=== PATIENT | male | born 1960 | race Caucasian/White ===

== ENCOUNTER 2020-10-10 11:04 | Outpatient (CLI) | payer BC, SELFPAY ==
--- NOTE | ~2020-10-10 | XR_ITS ---
EXAMINATION: XR knee LT 3V DATE: 10/10/2020 11:44 INDICATION: Left knee pain. TECHNIQUE: 3 views of left knee were obtained. COMPARISON: None. FINDINGS: Bone alignment is normal. No fracture. There is mild tricompartmental osteoarthritis. There is a small knee joint effusion. IMPRESSION: 1. Mild left knee osteoarthritis. 2. Small left knee joint effusion. Reviewed, dictated and finalized at location A.
== END 2020-10-10 11:05 | disposition home or self-care (01) ==
LOC: ANHIMG 11:10
PROVIDERS: PCP Family Medicine; Visit Provider Family Medicine
DX: M17.12 Unilateral primary osteoarthritis, left knee (principal); M25.462 Effusion, left knee
CPT/HCPCS: 73562

== ENCOUNTER 2021-10-13 09:40 | Outpatient (CLI) | payer BC, SELFPAY ==
--- NOTE | ~2021-10-13 | MR_ITS ---
EXAMINATION: MR knee RT wo con DATE: 10/13/2021 10:59 INDICATION: Medial right knee pain. TECHNIQUE: Magnetic resonance imaging (MRI) of the right knee was performed without intravenous contr ast. Sequences included axial PD-weighted FS FSE, coronal PD-weighted FSE and PD-weighted FS FSE, sag ittal PD-weighted FSE, and sagittal T2-weighted FS FSE. COMPARISON: Right knee radiographs 08/13/2021 FINDINGS: Medial compartment: There is a vertical tear involving body of medial meniscus. There is cartilage surface irregularity o f tibial condyle. There is shallow partial-thickness cartilage loss of femoral condyle, worst at the central articular surface. There are tiny osteophytes. Lateral compartment: Lateral meniscus is normal. There is shallow partial-thickness cartilage loss of tibial condyle. Ther e is cartilage surface irregularity of femoral condyle. There are tiny osteophytes. Patellofemoral compartment: There is deep partial thickness cartilage loss of patellar lateral facet and median ridge with mild s ubchondral edema-like marrow signal intensity. There is shallow partial-thickness cartilage loss of p atellar medial facet. There is shallow partial-thickness cartilage loss of trochlea with mild subchon dral edema-like marrow signal intensity at medial trochlea. Osteophytes are noted. Ligaments and tendons: The anterior and posterior cruciate ligaments are normal. There are changes of prior sprains of fibul ar collateral ligament and medial collateral ligament characterized by thickening and increased signa l intensity proximally. There is mild patellar tendinopathy. There is ununited ossification at tibial tubercle. Fluid: There is a small knee joint effusion. There is a small Ward's cyst. IMPRESSION: 1. Moderate chondrosis of patellofemoral compartment and mild chondrosis of medial and lateral compar tments. 2. Tear of medial meniscus. 3. Small knee joint effusion. 4. Small Ward's cyst. Reviewed, dictated and finalized at location A. IMPRESSION: 1. Moderate chondrosis of patellofemoral compartment and mild chondrosis of med ial and lateral compartments. 2. Tear of medial meniscus. 3. Small knee joint effusion. 4. Small Ward's cyst.
== END 2021-10-13 09:41 | disposition home or self-care (01) ==
LOC: CHSIMG 09:42
PROVIDERS: PCP Family Medicine; Visit Provider Nurse Practitioner Family
DX: M25.561 Pain in right knee (principal)
CPT/HCPCS: 73721

== ENCOUNTER 2021-11-25 01:35 | Day surgery (SDC) | payer BC, SELFPAY ==
[2021-11-18 17:55] VITALS: BMI 28.5
--- NOTE | 2021-11-18 18:21 | PC.NURSE ---
Report to the Outpatient Waiting Room, entrance under the green pavilion located off [facility], at 1130 on 11-25-21. OR Time: 1330. - You and your visitor will be asked a series of questions to screen for COVID 19 for your protection. - Only one visitor is allowed at this time. - The patient visitor is requested to leave or wait in car when not with patient. - A mask is required within the hospital. Patients may have clear liquids (water, carbonated beverages, clear teas, apple juice) until 3 hours prior to surgery with a maximum of 20 ounces. 1030 - No food from midnight until time of surgery - Infants may have breast milk until 4 hours before surgery, infant formula 6 hours prior to surgery. - Children will be allowed to drink immediately following surgery. If applicable, please bring a bottle or sippy cup to assist with drinking. Juice, water, soda, and popsicles are readily available. For infants on formula, please bring formula the day of surgery. Pacifiers are allowed. Take the following medications with a SIP of water the morning of surgery: None Medications to discontinue per physician: Excedrin and meloxicam per Dr. Velazco Please no make-up, nail upper sorbian, hairspray, perfume, deodorant, or body powder the day of surgery. No jewelry (including any body piercings) or valuables the day of surgery, leave them at home. Please take a shower or bath the night before, or the morning of, surgery with an antibacterial soap. Hibiclens per Mora's orders Wear comfortable, loose fitting clothing. Children are encouraged to wear pajamas. - Jewelry must be removed prior to entering the operating room. Rings and piercings that are not removed may be cut off. - The hospital will not accept responsibility for valuables. - Please leave all valuables, including medications, at home the day of surgery. If you are going home after surgery, a licensed caterpillar driver must drive you home. - NO public transportation without another adult. - We recommend that an adult stay with you for 24 hours following discharge. - We also recommend that you do not drive, make important decision, drink alcoholic beverages, or take any drugs that were not prescribed by your health care provider for at least 24 hours after your discharge time. For Pediatric surgeries, we recommend two adults accompany the child home (only one inside the building at this time). Follow any additional instructions given to you from your surgeon. If you or anyone in your household have experienced Covid symptoms in the past week, please notify your surgeon or the nurse liaison at the phone number below for possible testing. Telephone instructions given to Loyd Canales and asked if any additional questions and then verbalized understanding. Patient advised to call surgeon office or pre surgery nurse liaison [phone] if any additional questions.
--- NOTE | 2021-11-24 13:47 | P.PNAN_ITS ---
Anes - Initial Pre Proc Eval Procedure: Operation Date: 11/25/21 13:30 Proposed Procedures p Right Knee Arthroscopy, Proceed As Indicated - Mike Velazco MD Date/Time: 11/24/21 13:47 Surgeon: Mike Velazco MD Pre Op Diagnosis: right knee medial meniscus tear Patient Data Age: 61 Gender: M Height: 1.85 m Weight: 97.98 kg Allergies Allergy/AdvReac Type Severity Reaction Status Date / Time No Known Allergies Allergy Verified 11/25/21 12:05 Home Medications Medication Instructions Recorded Confirmed Type acetaminophen-caffeine 500 mg-65 1 tablet PO Q6H PRN headaches 07/16/19 11/25/21 History mg tablet (Excedrin Tension Headache) meloxicam 15 mg tablet 15 mg PO DAILY #30 tabs 10/26/21 11/25/21 Rx chlorhexidine gluconate 4 % 1 applic topical ONCE #237 mL 11/18/21 11/25/21 Rx topical liquid (Hibiclens) Patient hx anesthesia problems: none Family hx anesthesia problems: none Results Review: All pre-operative results and documents have been reviewed as part of the pre- operative evaluation. [facility] Past Medical History Medical History (Updated 11/24/21 @ 13:48 by Sebastián Alvarado MD) BMI 32.0-32.9,adult Body mass index (BMI) of 31.0 to 31.9 in adult Chronic neck pain Degenerative joint disease of knee Dehydration after exertion Left knee pain Left knee pain Male erectile dysfunction, unspecified Medial meniscus tear Mixed hyperlipidemia Palpitation PUD (peptic ulcer disease) Right knee pain Seasonal allergic rhinitis Tobacco use cigars twice weekly Vitamin B12 deficiency anemia Family History Family History Father Patient's father is , Onset Age: 31 Family history of malignant neoplasm of testis Social History Social History Years smoked: 15 Smoking status: Current some day smoker Tobacco type: cigars and smokeless tobacco Second hand tobacco smoke exposure: No Additional smoking assessment comments: smokes cigars 2 week; chews regularly Alcohol intake: current Alcohol use details: socially Substance use: never Substance use type: does not use Living arrangements: with family Spiritual care concerns: No Anes - Eval Final PreProcedure Day of Procedure 11/24/21 13:47 Patient weight: overweight Heart: regular rate and rhythm Lungs: clear to auscultation and normal air movement Airway: Mallampati scale class II Neurological: alert and oriented Last oral intake: >/= 8 hours ASA classification: II Emergent: no Anesthetic plan: proceed Anesthesia type and monitoring: general GIVS Results Review: All pre-operative results and documents have been reviewed as part of the pre- operative evaluation. Informed Consent: The patient's anesthetic plan and its attendant risks and benefits were discussed with the patient/family/POA. Questions were solicited and answers provided to the satisfaction of the patient/family/POA.
[2021-11-25] VITALS (8 sets, daily range): BP systolic 105–133; BP diastolic 68–86; PULSE 49–73; RESP 12–16; TEMP 36.4–37.1; O2SAT 98–99
--- NOTE | 2021-11-25 07:06 | WPDHPUPDATE1 ---
History and Physical Update Update Date/Time: 11/25/21 07:06 History and Physical has been reviewed, including an updated exam of the patient. There are NO changes in the patient's condition. Risks, benefits, and alternatives have been discussed and questions answered. Patient agrees to proceed with procedure.
[2021-11-25] MEDS: ACETAMINOPHEN 500 MG TABLET 1000 MG PO (11:50)
[2021-11-25] MEDS: CELECOXIB 200 MG CAPSULE PO (11:50)
[2021-11-25] MEDS: LACTATED RINGERS 1,000 ML 30 ML IV CONT (12:00)
[2021-11-25] MEDS: ceFAZolin 2 GM/D5W 50 ML 2 GM/50 ML BAG IVPB (12:53)
[2021-11-25] MEDS: BUPIVACAINE HCL 0.5% PF 30 ML VIAL INFILTRATE (13:11)
--- NOTE | 2021-11-25 14:44 | W.PM.PROC2 ---
Procedure Note - Detailed Date of Procedure 11/25/21 Pre-op Diagnosis right knee medial meniscus tear Post-op Diagnosis Other (lateral meniscus tear and medial meniscus tear) Procedure Performed RIGHT KNEE SCOPE Surgeon Mike Velazco MD Anesthesia General Description of Procedure PATIENT WAS TAKEN TO THE OR. RIGHT LEG WAS PREPPED AND DRAPED STERILE. TROCARS WERE PLACED IN THE USUAL FASHION. CAMERA WAS INTRODUCED. THERE WAS CHONDROMALACIA TO THE PATELLA FEMORAL JOINT. THERE WAS A LOT OF SYNOVITIS IN ALL COMPARTMENTS. THE MEDIAL COMPARTMENT SHOWED CHONDROMALACIA TO THE MEDIAL FEMORAL CONDYLE. A SHAVER WAS USED TO PREFORM A CHONDROPLASTY. THERE WAS A LARGE COMPLEX MEDIAL MENISCUS TEAR. THE TEAR WAS RESECTED WITH A BITER AND A SHAVER DOWN TO A SMOOTH BASE. ABOUT 30% OF THE MENISCUS WAS REMOVED. THE ACL WAS INTACT. THE LATERAL MENISCUS WAS TORN AT THE ANTERIOR HORN. THE TEAR WAS RESECTED. THE LATERAL COMPARTMENT HAD GRADE 2 CHONDROMALACIA AT THE LATERAL PLATEAU. CHONDROPLASTY WAS PREFORMED. A SYNOVECTOMY WAS PREFORMED WELL. THE PATELLO FEMORAL JOINT UNDERWENT CHONDROPLASTY. THERE WAS GRADE CHONDROMALACIA IN PART OF THE PATELLA. SYNOVECTOMY WAS PREFORMED IN THE SUPERIOR MEDIAL COMPARTMENT. THE WOUNDS WERE APPROXIMATED WITH 4.0 NYLON. STERILE DRESSING WAS APPLIED. PATIENT WAS EXTUBATED. Estimated Blood Loss 5 Complications No immediate complications Condition Stable Disposition PACU
[2021-11-25] MEDS: fentaNYL CITRATE INJ (*CRX) 100 MCG/2 ML VIAL 25 MCG IV PUSH ×2 (14:51→14:58)
--- NOTE | 2021-11-25 18:56 | SUR.PHASEII ---
1637: RN called into OR 8 to tell the software support analyst (Angela) to have Dr. Velazco call family for this patient when he's finished with surgery since he didn't prior to starting next case.
== END 2021-11-25 16:42 | disposition home or self-care (01) ==
PROVIDERS: PCP Family Medicine; Visit Provider Orthopaedic Surgery
PROC: (CPT 29870; principal; 2021-11-25 13:30)
DX: S83.231A Complex tear of medial meniscus, current injury, right knee, initial encounter (principal); S83.281A Other tear of lateral meniscus, current injury, right knee, initial encounter; M94.261 Chondromalacia, right knee; M65.861 Other synovitis and tenosynovitis, right lower leg; X50.0XXA Overexertion from strenuous movement or load, initial encounter; F17.290 Nicotine dependence, other tobacco product, uncomplicated; F17.220 Nicotine dependence, chewing tobacco, uncomplicated
CPT/HCPCS: 29880; A9270; J0690; J1100; J2250; J2405; J2704; J3010; J7120

== ENCOUNTER → 2022-10-01 10:09 | Outpatient (CLI) | payer BC, SELFPAY ==
--- NOTE | ~2022-10-01 | XR_ITS ---
Left Shoulder Technique: AP and axillary views were obtained. Clinical History: Pain Findings: No fracture or dislocation is seen. Osseous alignment is anatomic. The glenohumeral and acr omioclavicular joint spaces are preserved. Soft tissues are unremarkable. Impression: Unremarkable left shoulder radiographs. Reviewed, dictated and finalized at [facility]. Impression: Unremarkable left shoulder radiographs.
== END ==
PROVIDERS: PCP Nurse Practitioner Family; Visit Provider Nurse Practitioner Family
DX: M25.512 Pain in left shoulder (principal)
CPT/HCPCS: 73030

== ENCOUNTER 2023-11-23 09:28 | Outpatient (CLI) | payer BC, SELFPAY ==
--- NOTE | ~2023-11-23 | NM_ITS ---
EXAMINATION: NM bone scan whole body DATE: 11/23/2023 14:22 INDICATION: Plasma cell disorder. TECHNIQUE: 25.7 mCi Tc-99m HDP was administered intravenously. Delayed whole-body scintigrams were o btained. COMPARISON: Radiographs of the left shoulder 10/01/2022 and bilateral knees dated 10/13/2021 and FINDINGS: There is mild likely degenerative joint centered uptake at the bilateral sternoclavicular and acromio clavicular joints, at the sternomanubrial articulation and at the bilateral patellofemoral and right medial compartments of the knees. No other suspicious foci of abnormal bone uptake to suggest metasta tic disease. IMPRESSION: 1. No lesion suspicious for metastatic disease. Of note the mild bone scan can be insensitive for lyt ic bone disease such as multiple myeloma. Reviewed, dictated and finalized at location A. IMPRESSION: 1. No lesion suspicious for metastatic disease. Of note the mild bone scan can be insensitive for lytic bone disease such as multiple myeloma.
== END 2023-11-23 09:29 | disposition home or self-care (01) ==
LOC: ANHIMG 09:32
PROVIDERS: PCP Nurse Practitioner Family; Referring Provider Nurse Practitioner Family; Visit Provider Internal Medicine Hematology & Oncology
DX: D72.9 Disorder of white blood cells, unspecified (principal)
CPT/HCPCS: 78306; A9503

== ENCOUNTER 2023-11-28 01:07 | Day surgery (SDC) | payer BC, SELFPAY ==
[2023-11-25 17:18] VITALS: BMI 29.5
[2023-11-28] VITALS (9 sets, daily range): BP systolic 100–131; BP diastolic 62–88; PULSE 48–60; RESP 12–18; TEMP 36.8; O2SAT 94–100; BMI 29.5
--- NOTE | ~2023-11-28 | BM_ITS ---
EXAMINATION: CCL bone marrow asp w bx diag ORDER COMPLETED DATE: 11/28/2023 16:33 INDICATION: Plasma cell disorder with abnormal globulin levels TECHNIQUE: A time-out was performed to verify the patient's name, date of , and procedure to b e performed. The procedure including the risks and benefits was discussed with the patient. Risks dis cussed included bleeding, infection, nerve injury and allergic reaction. The patient understood the r isks and agreed to proceed. The skin overlying the right posterior iliac spine was prepped and draped in usual sterile fashion. Anesthetic was administered with 1% lidocaine subcutaneously. Moderate co nscious sedation was achieved with 50 mcg fentanyl IV and 1 mg of Versed IV. An 11 gauge needle was i nserted into the right ilium with fluoroscopic guidance. Bone marrow was aspirated. An 8 gauge needle was then inserted into the right ilium with fluoroscopic guidance. A core bone marrow biopsy was obt ained. The needle was removed and the entry site was cleaned and dressed. There were no immediate co mplications. A total of 5 fluoroscopic images were recorded. Fluoroscopy exposure time was 0.1 minute s. Total DAP was 560 mGycm^2 FINDINGS: For scopic images demonstrate a hemostat for marking the site of biopsy with tip overlying the right posterior iliac spine. IMPRESSION: 1. Successful fluoroscopic guided bone marrow aspiration. 2. Successful fluoroscopic guided bone marrow biopsy. Reviewed, dictated and finalized at location A.
[2023-11-28 09:23] LABS: Basophils Percent Auto 0.9 % (0.2-1.2); Eosinophils Absolute Auto 0.5 K/mm3 (0-0.3); Eosinophils Percent Auto 10.4 % (0-4.4); Hematocrit 46.9 % (42.0-52.0); Hemoglobin 15.7 g/dL (14.0-18.0); Immature Granulocyte Absolute 0.03 K/mm3 (0.00-0.031); Immature Granulocyte Percent A 0.7 % (0-0.5); Lymphocytes Absolute Auto 1.37 K/mm3 (0.9-3.2); Lymphocytes Percent Auto 31.1 % (18.3-44.2); Mean Corpuscular HGB Conc 33.5 g/dl (32-36); Mean Corpuscular Hemoglobin 31.7 pg (26-34); Mean Corpuscular Volume 94.6 fl (80-100); Mean Platelet Volume 10.5 fl (7.4-10.4); Monocytes Absolute Auto 0.3 K/mm3 (0.1-0.6); Monocytes Percent Auto 6.8 % (2.6-8.5); Neutrophils Absolute Auto 2.2 K/mm3 (1.3-6.7); Neutrophils Percent Auto 50.1 % (45.5-73.1); Platelet Count Result 188 k/mm3 (150-375); Red Blood Count 4.96 M/mm3 (4.6-6.20); Red Cell Distribution Width 12.5 % (11.5-14.5); White Blood Count 4.4 K/mm3 (4.5-10.0)
[2023-11-28 09:30] LABS: Prothrombin Time 13.6 Seconds (11.1-14.7)
[2023-11-28 09:32] LABS: Alanine Aminotransferase 17 U/L (6-50); Albumin Level 4.3 g/dL (3.5-5.1); Alkaline Phosphatase 66 U/L (38-126); Anion Gap 9 mmol/L (4-12); Aspartate Amino Transferase 26 U/L (17-59); Bilirubin,Total 0.7 mg/dL (0.2-1.3); Blood Urea Nitrogen 17 mg/dL (9-20); Calcium 8.9 mg/dL (8.4-10.2); Carbon Dioxide 25 mmol/L (22-30); Chloride 104 mmol/L (98-107); Estimated CRCL calculation 56 ml/min; Estimated Glomerular Filt Rate 51; Glucose 93 mg/dL (65-110); Potassium 4.4 mmol/L (3.4-5.0); Sodium 138 mmol/L (137-145)
[2023-11-28 09:39] LABS: Immunoglobulin A 70 mg/dL (70-400); Immunoglobulin G 2398 mg/dL (700-1600)
[2023-11-28 09:42] LABS: Immunoglobulin M < 25 mg/dL (40-230)
--- NOTE | 2023-11-28 10:06 | WPDMODSED ---
Moderate Sedation Note-Pt Data Patient Data Diagnosis: abnormal serum protein and globulin Present Complaint: recent weight loss Procedure to be performed/Plan: bone marrow biopsy Allergies Allergy/AdvReac Type Severity Reaction Status Date / Time No Known Allergies Allergy Verified 10/19/23 14:54 Home Medications Medication Instructions Recorded Confirmed Type acetaminophen-caffeine 500 mg-65 1 tablet PO Q6H PRN headaches 07/16/19 11/28/23 History mg tablet (Excedrin Tension Headache) sildenafil (pulm.hypertension) 20 See Rx Instructions PO DAILY PRN 03/21/23 11/28/23 Rx mg tablet sexual activity #90 tabs Sedation/Anesthesia: No previous sedation/anesthesia problems (including family history). [facility] Past Medical History Medical History (Updated 10/19/23 @ 15:28 by Anayeli Cortez NP) Basal cell carcinoma BMI 32.0-32.9,adult Body mass index (BMI) of 31.0 to 31.9 in adult Chronic neck pain Degenerative joint disease of knee Dehydration after exertion Elevated serum creatinine Elevated serum globulin level Left knee pain Left knee pain Left shoulder pain Male erectile dysfunction, unspecified Medial meniscus tear Mixed hyperlipidemia Palpitation PUD (peptic ulcer disease) Right knee pain Screening for colon cancer Seasonal allergic rhinitis Tobacco use cigars twice weekly Vitamin B12 deficiency anemia Family History Family History Father Patient's father is , Onset Age: 31 Family history of malignant neoplasm of testis Social History Social History Years smoked: 15 Smoking status: Current some day smoker Tobacco type: cigars and smokeless tobacco Second hand tobacco smoke exposure: No Alcohol intake: current Drinks per week: 5 Alcohol use details: socially Substance use: never Substance use type: does not use Current Housing: Decline to Answer Concerned About Future Housing: Decline to Answer Difficulty Paying Gas/Electric Bills: Decline to Answer Difficulty Paying for Meds: Decline to Answer Currently Unemployed: Decline to Answer Education: Decline to Answer Difficulty w/ Childcare or Family Care: Decline to Answer Living arrangements: with family Spiritual care concerns: No Mod Sed Physical Exam Physical Exam Pre Procedural Exam: Normal: Throat, Lungs, Heart Rate and Heart Rhythm Hours since solid foods: 15 Hours since liquid intake: 12 Mallampati Classification: class III Internal Medicine - PN: Obj Da Vital Signs Vital Signs: Vital Signs - 24 hr 11/28/23 08:30 11/28/23 09:45 11/28/23 09:45 Temperature 98.2 F Pulse Rate 60 55 L Pulse Rate [Right Pedal (Dorsalis Pedis)] 50 L Respiratory Rate 12 18 Blood Pressure 121/88 113/73 Pulse Oximetry 97 100 Oxygen Delivery Room Air Room Air Labs 11/28/23 09:11 11/28/23 09:11 Labs: Laboratory Results - last 24 hr 11/28/23 09:11 WBC 4.4 L RBC 4.96 Hgb 15.7 Hct 46.9 MCV 94.6 MCH 31.7 MCHC 33.5 RDW 12.5 Plt Count 188 MPV 10.5 H Immature Gran % (Auto) 0.7 H Neut % (Auto) 50.1 Lymph % (Auto) 31.1 [place] % (Auto) 6.8 Eos % (Auto) 10.4 H Baso % (Auto) 0.9 Lymph # (Auto) 1.37 [place] # (Auto) 0.3 Eos # (Auto) 0.5 H Baso # (Auto) 0.0 Abs Immat Gran (auto) 0.03 Absolute Neuts (auto) 2.2 Absolute Nucleated RBC 0.000 Nucleated RBC % 0.0 PT 13.6 INR 1.0 Sodium 138 Potassium 4.4 Chloride 104 Carbon Dioxide 25 Anion Gap 9 BUN 17 Creatinine 1.40 H Estim Creat Clear Calc 56 Estimated GFR 51 L Glucose 93 Calcium 8.9 Total Bilirubin 0.7 AST 26 ALT 17 Alkaline Phosphatase 66 Total Protein 8.0 Albumin 4.3 IgG 2398 H IgA 70 IgM < 25 L ASA Classification/Sedation ASA Classification/Sedation ASA Class: II Emergent: No Risks: Risks, benefits and alternatives explaine
[2023-11-28] MEDS: ACETAMINOPHEN 500 MG TABLET 1000 MG PO (11:26)
[2023-11-29 12:22] LABS: Protein, Total 7.8 g/dL (6.1-8.1)
[2023-11-29 13:43] LABS: Kappa\\Lambda Light Chains 8.07 (0.26-1.65); Lambda Light Chain 9.2 mg/L (5.7-26.3)
[2023-11-29 15:28] LABS: Abnormal Protein Band 1 1.8 g/dL (NONE DETECTED); Albumin 4.2 g/dL (3.8-4.8); Alpha 1 Globulin 0.3 g/dL (0.2-0.3); Alpha 2 Globulin 0.6 g/dL (0.5-0.9); Beta 1 Globulin 0.4 g/dL (0.4-0.6)
== END 2023-11-28 11:58 | disposition home or self-care (01) ==
PROVIDERS: PCP Nurse Practitioner Family; Referring Provider Internal Medicine Hematology & Oncology; Visit Provider Radiology Diagnostic Radiology
DX: C90.00 Multiple myeloma not having achieved remission (principal); E78.2 Mixed hyperlipidemia; D51.9 Vitamin B12 deficiency anemia, unspecified; N52.9 Male erectile dysfunction, unspecified; M54.2 Cervicalgia; G89.29 Other chronic pain; F17.290 Nicotine dependence, other tobacco product, uncomplicated; Z85.828 Personal history of other malignant neoplasm of skin; Z80.43 Family history of malignant neoplasm of testis
CPT/HCPCS: 36415; 38222; 80053; 82784; 83883; 84155; 84165; 85025; 85610; 88184; 88185; 88305; 88311; 88313; 88342; A9270; J1642; J2250; J3010; J7040

== ENCOUNTER 2023-12-13 08:59 | Outpatient (CLI) | payer BC, SELFPAY ==
--- NOTE | ~2023-12-13 | PE_ITS ---
EXAMINATION: PET skull to mid thigh DATE: 12/13/2023 11:56 INDICATION: Plasma cell disorder. TECHNIQUE: Blood glucose level was 92 mg/dL. 10.216 mCi of 18-fluorodeoxyglucose (18-FDG) was adminis tered i.v. Low dose computed tomography (CT) images were acquired from the base of the brain to the p roximal thighs for attenuation correction and anatomic localization. Automated exposure control was e mployed. Dose-length product (DLP) was 1259 mGy-cm. Positron emission tomography (PET) images were ac quired in the same distribution. COMPARISON: None FINDINGS: Head/neck: There are no pathologically enlarged lymph nodes. Chest: The lungs demonstrate mild atelectasis. No pleural effusion. The heart size is normal. There a re coronary artery calcifications. No pericardial effusion. Abdomen/pelvis/proximal thighs: The liver, gallbladder, spleen, pancreas, adrenal glands, and kidneys are normal. There are bilateral inguinal hernias containing fat. There are no dilated loops of bowel . The appendix is normal. There are no abnormal lytic lesions of bone. IMPRESSION: 1. No specific evidence of multiple myeloma. Reviewed, dictated and finalized at location A.
[2023-12-13 09:19] LABS: Glucose Point of Care 92 mg/dl (65-105)
== END 2023-12-13 09:00 | disposition home or self-care (01) ==
PROVIDERS: PCP Nurse Practitioner Family; Visit Provider Internal Medicine Hematology & Oncology
DX: D72.9 Disorder of white blood cells, unspecified (principal)
CPT/HCPCS: 78815; A9552

== ENCOUNTER 2024-08-07 07:55 | Outpatient (CLI) | payer BC, SELFPAY ==
--- NOTE | ~2024-08-07 | MR_ITS ---
MRI of the left knee Clinical history: Pain Technique: Coronal proton density and proton density-weighted images, sagittal proton-density and T2 fat-sat images, and axial proton-density fat-saturated images were acquired. Findings: Anterior and posterior cruciate ligaments are intact. Medial collateral ligament and the la teral collateral ligament complex are intact. Popliteus tendon is intact. Medial and lateral menisci are intact, without evidence of tear. There is extensive grade IV chondromalacia at the patellar apex and lateral facet, with small areas o f subchondral cystic change. There is patchy moderate chondromalacia the femoral trochlea with subtle high-grade chondral fissures present. There is moderate chondral thinning at the medial and lateral joint lines. Minimal tricompartmental osteophyte formation present. Extensor mechanism is intact. Small joint effusion present. No Ward's cyst. Impression: Moderate degenerative change of the patellofemoral compartment. Mild degenerative change of the media l and lateral compartments. No ligamentous injury or meniscal tear seen. Small joint effusion. Reviewed, dictated and finalized at location . Impression: Moderate degenerative change of the patellofemoral compartment. Mild degenerati ve change of the medial and lateral compartments. No ligamentous injury or meniscal tear seen. Small joint effusion.
== END 2024-08-07 07:56 | disposition home or self-care (01) ==
LOC: MICIMG 07:55
PROVIDERS: PCP Nurse Practitioner Family; Visit Provider Nurse Practitioner Family
DX: M25.462 Effusion, left knee (principal); M17.12 Unilateral primary osteoarthritis, left knee
CPT/HCPCS: 73721

== ENCOUNTER 2024-08-20 14:29 | Outpatient (CLI) | payer BC, SELFPAY ==
--- NOTE | ~2024-08-20 | US_ITS ---
EXAMINATION: US venous doppler LE DATE: 08/20/2024 15:16 INDICATION: Personal history of right lower extremity deep venous thrombosis following trauma many ye ars earlier TECHNIQUE: Grayscale ultrasound images without and with compression and Doppler ultrasound images of the bilateral lower extremity veins were obtained. COMPARISON: None. FINDINGS: The visualized portions of right common femoral vein, profunda (deep) femoral vein, femoral vein, pop liteal vein, peroneal veins, posterior tibial veins, and greater saphenous vein outflow are patent. The visualized portions of profunda femoral vein and greater saphenous vein outflow are patent. Noncompressibility and absence of flow are identified within the left common femoral, femoral, poplit eal, peroneal and posterior tibial veins. IMPRESSION: Extensive acute deep venous thrombosis within the left lower extremity, as detailed above. Reviewed, dictated and finalized at location A. IMPRESSION: Extensive acute deep venous thrombosis within the left lower extremity, as detyudi howe above.
--- OUTSIDE RECORDS SUMMARY | 2024-08-20 16:17 | XMS_ITS | CONTINUITY OF CARE DOCUMENT ---
Author Name jose garcia Address Unknown Organization [facility] Address [address] [place] [address] Phone [phone] Care Team Providers Care Plant Operations Worker Name Role Phone Juno MORSE, Randolph Unavailable [phone] JOE SCHULTZ MD Unavailable INSURANCE [employer] Payer name Policy type / Coverage type [place] red green party ID [facility] [id number]
--- OUTSIDE RECORDS SUMMARY | 2024-08-20 16:17 | XMS_ITS | Clinical Summary ---
Author Organization [facility] Address [address] [address] Care Team Providers Care Migration Specialist Name Role Phone Phan Taveras MD Primary Care Provider [phone] Allergies No known active allergies Medications sildenafiL (VIAGRA) 25 mg tablet Take 25 mg by mouth 1 time daily as needed for Erectile Dysfunction. Active Active Problems No known active problems Family History Medical History Relation Name Comments No Known Problems Brother 1 No Known Problems Brother 2 No Known Problems Child 1 No Known Problems Child 2 Testicular Cancer Father No Known Problems Mother No Known Problems Sister Relation Name Status Comments Brother 1 Alive Brother 2 Alive Child 1 Alive Child 2 Alive Father Mother Alive Sister Alive Social History Tobacco Use Types Packs/Day Years Used Date Smoking Tobacco: Some Days Cigars Smokeless Tobacco: Current Chew Alcohol Use Standard Drinks/Week Comments Yes 0 (1 standard drink = 0.6 oz pur e alcohol) socially Sex and Gender Information Value Date Recorded Sex Assigned at Not on file Legal Sex Male 9:21 AM CDT Gender Identity Not on file Sexual Orientation Not on file Last Filed Vital Signs Vital Sign Reading Time Taken Comments Blood Pressure 133/85 04/24/2024 1:59 PM [employer] Pulse 70 04/24/2024 1:59 PM [employer] Temperature 36.9 C (98.4 F) 04/24/2024 1:59 PM [employer] Respiratory Rate 16 04/24/2024 1:59 PM [employer] Oxygen Saturation 98% 04/24/2024 1:59 PM [employer] Inhaled Oxygen Concentration - - Weight 107 kg (236 lb) 04/24/2024 1:59 PM [employer] Height 185.4 cm (6' 1 ) 11/15/2023 2:02 PM CDT Body Mass Index 31.14 11/15/2023 2:02 PM CDT Plan of Treatment Upcoming Encounters Date Type Department Care Team (Late st Contact Info) Description 10/24/2024 3:45 PM CDT Office Visit [facility] Oncology and Hematology [facility] [address] [place] [address] Osmar Sullivan MD [address] [place] [address] Health Maintenance Due Date Last Done Comments Pre-Diabetes and Diabetes Screening 1960 PNEUMOCOCCAL VACCINE 0-49 YEARS (1 of 2 - PCV) 968 DTAP/TDAP/TD VACCINES (1 - Tdap) 1980 COLORECTAL SCREENING 2006 Colorectal Cancer Screening 2006 FIT-DNA Q 3 years 2006 FIT/FOBT Q 1 year 2006 Flex Sig/CT Colonography Q 5 years 2006 ZOSTER VACCINE (1 of 2) 11/06/2011 INFLUENZA VACCINE (#1) 2023 RSV VACCINE (60+ or ) (1 - 1-dose 75+ series) 2036 Insurance [facility] BLUE ACCESS/TRUE BLUE PPO Care Teams Migration Specialist Relationship Specialty Start Date End Date Phan Taveras MD [address] [place] [address] [address] [place] [address] PCP - General Family Practice 6/17/24
== END 2024-08-20 14:30 | disposition home or self-care (01) ==
PROVIDERS: PCP Nurse Practitioner Family; Visit Provider Orthopaedic Surgery
DX: I82.412 Acute embolism and thrombosis of left femoral vein (principal); I82.432 Acute embolism and thrombosis of left popliteal vein; I82.452 Acute embolism and thrombosis of left peroneal vein; I82.442 Acute embolism and thrombosis of left tibial vein
CPT/HCPCS: 93970

== ENCOUNTER 2024-08-21 17:42 | Inpatient (IN) | payer BC, SELFPAY ==
[2024-08-21] VITALS (9 sets, daily range): BP systolic 125–144; BP diastolic 75–89; PULSE 89–144; RESP 14–22; TEMP 36.9–38.8; O2SAT 94–100; BMI 29.5
--- NOTE | ~2024-08-21 | CT_ITS ---
CTA chest PE protocol Ordering provider: Genoveva Ellsworth History: 63 years Male with . dyspnea, recent DVT dx . Comparison: None. Technique: CT angiogram chest was performed following timed intravenous injection of contrast. Thin s lice axial images and reformatted coronal images were obtained. Three dimensional reformatted images of the chest were also obtained using a [employer] workstation. . Automated exposure control and iterati ve reconstruction technique were employed. The dose-length product was 542.72 mGy-cm. 100 and Omnipaq ue 350 was given IV. Findings: PULMONARY ARTERIES: Pulmonary embolism is seen with thrombi are seen in the right main pulmonary niki ry and its branches. Right heart strain is noted. VISUALIZED THORACIC INLET: Normal. MEDIASTINUM: Aorta/coronary arteries: Mild atheromatous disease. Heart/other: The heart is not enlarged. Lymph nodes: No mediastinal or hilar adenopathy. LUNGS: No pulmonary nodules or masses. No infiltrates or effusions. No pneumothorax. VISUALIZED UPPER ABDOMEN: Sliding hiatus hernia. Otherwise, the visualized upper abdomen is normal. MUSCULOSKELETAL: Soft tissues: The superficial soft tissues are normal. Bones: Age appropriate degenerative changes of the spine. IMPRESSION: 1. Pulmonary embolism. 2. Sliding hiatus hernia. 3. No acute lung lesion seen. The treating physician was notified 8:25 PM on August 21, 2024. Reviewed, dictated and finalized at location A.
--- NOTE | ~2024-08-21 | US_ITS ---
EXAMINATION: US venous doppler [facility] DATE: 08/25/2024 12:25 INDICATION: Left lower limb pain and swelling with extensive deep venous stenosis in the left lower l imb on recent ultrasound TECHNIQUE: Grayscale ultrasound images without and with compression and Doppler ultrasound images of the left lower extremity veins were obtained. COMPARISON: 08/20/2024 FINDINGS: No appreciable interval change in extensive occlusive appearing deep venous thrombosis throughout the visualized portions of left femoral vein, popliteal vein, peroneal veins, posterior tibial veins, ga strocnemius vein and extending into the distal left common femoral vein. The left profunda (deep) fe moral vein and greater saphenous vein outflow remain patent. IMPRESSION: 1. No interval change in extensive occlusive appearing acute deep venous thrombosis sparing the prof unda femoral vein and greater saphenous vein outflow. Reviewed, dictated and finalized at location A. IMPRESSION: 1. No interval change in extensive occlusive appearing acute deep venous throm bosis sparing the profunda femoral vein and greater saphenous vein outflow.
--- NOTE | ~2024-08-21 | CT_ITS ---
CLINICAL INDICATION: Abdominal pain with nausea and vomiting COMPARISON: 08/21/2024 CTA of the chest. TECHNIQUE: Multiple contiguous axial images of the abdomen and pelvis were performed following the ad ministration of with 100 mL Omnipaque-350 intravenous contrast The dose-length product (DLP) was 862.71 mGy-cm. Automated exposure control and iterative reconstruction technique were employed. FINDINGS/OBSERVATIONS: Visualized lower thorax: The bilateral lung bases are clear. Redemonstration of a pulmonary embolus within the right descending pulmonary artery, with extension i nto the right ascending pulmonary artery. The heart is enlarged, without pericardial effusion. Thickening of the distal esophagus is identified. Liver: The liver demonstrates homogeneous enhancement and is enlarged measuring 20 cm in longitudinal dimens ion. Gallbladder and biliary system: The gallbladder is only minimally distended, and otherwise unremarkable. Pancreas: The pancreas enhances homogeneously without ductal dilatation. Spleen: The spleen enhances homogeneously and is not enlarged. Kidneys: The bilateral kidneys enhance symmetrically without hydronephrosis or renal calculi. Adrenal glands: Unremarkable. Gastrointestinal tract: Significant air opacification of the colon, similar in appearance to the upper cuts of the abdomen se en on chest evaluation performed one day earlier. Appendix: The appendix is not definitively visualized. However, no pericecal inflammatory change is identified suggest the presence of acute appendicitis. Vasculature: As above. Lymph nodes: No pathologically enlarged or morphologically suspicious lymph nodes within the retroperitoneum or at the root of the mesentery. Pelvic structures: The bladder is only minimally distended, and otherwise unremarkable. The prostate gland is not enlarged. Body wall and musculoskeletal: Bilateral fat-containing inguinal hernias. No significant degenerative disease within the lower thoracic or lumbosacral spine. IMPRESSION: Significant air opacification of nearly the entirety of the colon without a clear source of obstructi on identified. Redemonstration of patient's known pulmonary embolus within the right descending and ascending pulmon hammad arteries. Reviewed, dictated and finalized at location A. IMPRESSION: Significant air opacification of nearly the entirety of the colon without a ava ar source of obstruction identified. Redemonstration of patient's known pulmonary embolus within the right descendin g and ascending pulmonary arteries.
--- NOTE | ~2024-08-21 | XR_ITS ---
XR chest 1V portable Ordering provider: Genoveva Ellsworth PA-C History: 63 years Male with . dyspnea . Comparison: None. FINDINGS: MEDIASTINUM: The cardiac silhouette is slightly enlarged. LUNGS: No infiltrates, effusions or pneumothorax. Prominent bronchovascular markings in the lower lob es bilaterally. OTHER: No free air under the diaphragm. IMPRESSION: No acute cardiopulmonary pathology. Prominent bronchovascular markings in the lower lobes bilaterally . Reviewed, dictated and finalized at location A. IMPRESSION: No acute cardiopulmonary pathology. Prominent bronchovascular markings in the l ower lobes bilaterally.
--- NOTE | ~2024-08-21 | XR_ITS ---
XR abdomen/kub 1V 08/22/2024 16:35 Indication: Nausea Procedure: KUB Comparison: No prior studies for comparison. Findings: The left colon is ahaustral, suspicious for colitis. Nonobstructive bowel gas pattern. No s ignificant small bowel dilation. No abnormal calcifications. Impression: 1: Absence of haustral markings left colon, suspicious for colitis. Consider correlation with contras t-enhanced CT abdomen/pelvis. Reviewed, dictated and finalized at location B. Impression: 1: Absence of haustral markings left colon, suspicious for colitis. Consider co rrelation with contrast-enhanced CT abdomen/pelvis.
--- OUTSIDE RECORDS SUMMARY | 2024-08-21 17:45 | XMS_ITS | CONTINUITY OF CARE DOCUMENT ---
Author Name jose garcia Address Unknown Organization [facility] Address [address] [place] [address] Phone [phone] Care Team Providers Care Reaming Machine Operator For Plastic Name Role Phone Juno MORSE, Randolph Unavailable [phone] JOE SCHULTZ MD Unavailable INSURANCE PROVIDERS Payer name Policy type / Coverage type [place] red democrat ID [facility] [id number]
--- OUTSIDE RECORDS SUMMARY | 2024-08-21 17:45 | XMS_ITS | Clinical Summary ---
Author Organization [facility] Address [address] [place] [address] Care Team Providers Care Shoe Repairer Helper Name Role Phone Phan Taveras MD Primary Care Provider [phone] Allergies No known active allergies Medications sildenafiL [...] Comments Blood Pressure 133/85 04/24/2024 1:59 PM SENIOR FACILITIES MANAGER Pulse 70 04/24/2024 1:59 PM SENIOR FACILITIES MANAGER Temperature 36.9 C (98.4 F) 04/24/2024 1:59 PM SENIOR FACILITIES MANAGER Respiratory Rate 16 04/24/2024 1:59 PM SENIOR FACILITIES MANAGER Oxygen Saturation 98% 04/24/2024 1:59 PM SENIOR FACILITIES MANAGER Inhaled Oxygen Concentration - - Weight 107 kg (236 lb) 04/24/2024 1:59 PM SENIOR FACILITIES MANAGER Height 185.4 cm (6' 1 ) 11/15/2023 2:02 PM CDT Body Mass Index 31.14 11/15/2023 2:02 PM CDT Plan of Treatment Upcoming Encounters Date Type Department Care Team (Late st Contact Info) Description 10/24/2024 3:45 PM CDT Office Visit [facility] Oncology and Hematology [facility] [address] [place] [address] Osmar Sullivan MD [address] [place] [address] Health Maintenance Due Date Last [...] (1 - 1-dose 75+ series) 2036 Insurance [facility] BLUE ACCESS/TRUE BLUE PPO Care Teams Shoe Repairer Helper Relationship Specialty Start Date End Date Phan Taveras MD [address] [place] [address] [address] [place] [address] PCP - General Family Practice 6/17/24
--- NOTE | 2024-08-21 18:14 | ECG_ITS ---
Test Date: 2024-08-21 18:49:22 Measurements Intervals [facility] Rate: 93 P: 12 OK: 191 QRS: -31 QRSD: 97 T: 20 QT: 339 QTc: 422 Interpretive Statements SINUS RHYTHM LEFT AXIS DEVIATION BORDERLINE R WAVE PROGRESSION, ANTERIOR LEADS BORDERLINE T WAVE ABNORMALITY- ANTERIOR LEADS BASELINE ARTIFACT- I, II, III, AVR, AVL, AVF, V1-V6 BORDERLINE ECG No previous ECG available for comparison Electronically Signed On 08-21-2024 18:52:29 CDT by David Tracey D.O.
--- NOTE | 2024-08-21 18:23 | ED_ITS ---
HPI - SOB/Dyspnea General Chief Complaint: Shortness of Breath/Dyspnea <Genoveva Ellsworth PA-C - Last Filed: 08/21/24 18:26> Stated Complaint: Shortness of breath -has leg DVT <Genoveva Ellsworth PA-C - Last Filed: 08/21/24 18:26> Time Seen by Provider: 08/21/24 19:05 <Genoveva Ellsworth PA-C - Last Filed: 08/21/24 18:26> Focused HPI: 63-year-old male with history of hyperlipidemia, PUD presents to the emergency department for shortness of breath for the past 2 days. Patient states the shortness of breath is worse with exertion. About 10 days ago he had his left knee aspirated and a steroid injected. On Tuesday he began developing pain in his left calf. He had an outpatient ultrasound performed yesterday which showed a DVT and was started on Xarelto, his 1st dose was yesterday. He denies history of PE, hemoptysis, recent surgeries or hospitalizations. He does have a history of prior DVT to the right lower extremity which was reportedly provoked due to an ankle fracture. He denies history of clotting disorders. He does report a dry cough but denies productive sputum. Also reporting a fever and 8.5 lb weight loss since Tuesday. He denies lower extremity edema, history of COPD or asthma, smoking. He is endorsing anxiety and is tearful in triage. GENERAL: Anxious-appearing, tearful HEAD: Normocephalic, atraumatic. CHEST: Increased work of breathing with no respiratory distress. Rhonchi to the left lower lung field, otherwise clear to auscultation HEART: Regular rate and rhythm.? NEURO: ?Alert and oriented x3. Patient screened in triage and initial orders placed.? ?Additional care and disposition to be based upon?diagnostic testing and treatment. <Genoveva Ellsworth PA-C - Last Filed: 08/21/24 18:26> Related Data Home Medications: Home Medications ?Medication ?Instructions ?Recorded ?Confirmed ?Last Taken ?Type acetaminophen-caffeine 500 mg-65 1 tablet PO Q6H PRN headaches 07/16/19 11/28/23 11/18/21 History mg tablet (Excedrin Tension Headache) <Genoveva Ellsworth PA-C - Last Filed: 08/21/24 18:26> Allergies/Adverse Reactions: Allergies Allergy/AdvReac Type Severity Reaction Status Date / Time No Known Allergies Allergy Verified 08/21/24 17:43 <Genoveva Ellsworth PA-C - Last Filed: 08/21/24 18:26> Review of Systems 2 Review of Systems: All systems are reviewed and are negative unless stated otherwise in the HPI. <Jessica Stanley MD - Last Filed: 08/21/24 21:48> PMFSH Past Medical History Medical History: Medical History Effusion of knee joint Knee injury Left knee DJD Elevated serum creatinine Basal cell carcinoma Screening for colon cancer Elevated serum globulin level Left shoulder pain PUD (peptic ulcer disease) Medial meniscus tear Degenerative joint disease of knee Right knee pain Left knee pain Tobacco use cigars twice weekly Body mass index (BMI) of 31.0 to 31.9 in adult Left knee pain BMI 32.0-32.9,adult Chronic neck pain Dehydration after exertion Palpitation Seasonal allergic rhinitis Vitamin B12 deficiency anemia Male erectile dysfunction, unspecified Mixed hyperlipidemia <Genoveva Ellsworth PA-C - Last Filed: 08/21/24 18:26> Family History Family History: Family History Father Patient's father is , Onset Age: 31 Family history of malignant neoplasm of testis <Genoveva Ellsworth PA-C - Last Filed: 08/21/24 18:26> Social History Social History: Social History Years smoked: 15 Smoking status: Former smoker Tobacco type: cigars and smokeless tobacco Second hand tobacco smoke exposure: No Alcohol intake: current Drinks per week: 5 Alcohol use details: socially Substance use: never Substance use type: does not use Current Housing: Decline to Answer Concerned About Future Housing: Decline to Answer Difficulty Paying Gas/Electric Bills: Decline to Answer Difficulty Paying for Meds: Decline to Answer Currently Unemployed: Decline to Answer Education: Decline to Answer Difficulty w/ Childcare or Family Care: Decline to Answer Living arrangements: with family Spiritual care concerns: No <Genoveva Ellsworth PA-C - Last Filed: 08/21/24 18:26> Exam 2 Narrative: General: Alert, awake, afebrile, in no acute distress. HEENT: PERRL, no rhinorrhea, no post nasal drip, oropharynx clear. Neck: Trachea midline, no JVD, no lymphadenopathy. Cardiovascular: Regular rate and rhythm, no murmurs, rubs or gallops, no peripheral edema. Respiratory: Clear to auscultation bilaterally, no tachypnea, no wheezing, no rhonchi, no rubs, no respiratory distress. Abdomen: Soft, nontender, nondistended, no rebound, no guarding, no peritoneal signs. Musculoskeletal: No joint swelling or deformity, normal muscle tone. Skin: No rashes or petechia, no signs of infection. Psychiatric: Alert and oriented, normal behavior and judgment for situation. Neurological: Alert and oriented to person, place, and time. Follows all commands. No focal deficits, speech is clear and fluent. <Jessica Stanley MD - Last Filed: 08/21/24 21:48> Course Vital Signs Vital signs: Vital Signs Temperature 99 F 08/21/24 17:57 Pulse Rate 97 08/21/24 17:57 Respiratory Rate 22 H 08/21/24 17:57 Blood Pressure 135/75 08/21/24 17:57 Pulse Oximetry 100 08/21/24 17:57 Temperature 100.9 F H 08/21/24 20:54 Pulse Rate 89 08/21/24 20:52 Respiratory Rate 14 08/21/24 20:52 Blood Pressure 125/80 08/21/24 20:52 Pulse Oximetry 99 08/21/24 20:52 <Genoveva Ellsworth PA-C - Last Filed: 08/21/24 18:26> Vital Signs Temperature 99 F 08/21/24 17:57 Pulse Rate 97 08/21/24 17:57 Respiratory Rate 22 H 08/21/24 17:57 Blood Pressure 135/75 08/21/24 17:57 Pulse Oximetry 100 08/21/24 17:57 Temperature 100.9 F H 08/21/24 20:54 Pulse Rate 89 08/21/24 20:52 Respiratory Rate 14 08/21/24 20:52 Blood Pressure 125/80 08/21/24 20:52 Pulse Oximetry 99 08/21/24 20:52 <Jessica Stanley MD - Last Filed: 08/21/24 21:48> MDM - SOB/Dyspnea MDM Narrative Medical decision making narrative: The patient was evaluated by myself in the emergency department. History is obtained from patient who is an independent historian and physical exam was performed. External medical records were reviewed at this time. IV was established and pertinent tests were ordered. Patient was administered 1 g of oral Tylenol for fever. EKG was obtained which revealed sinus rhythm rate of 93 beats per minute, no evidence of acute ischemia. EKG was independently interpreted by me and is currently pending official cardiology read. Laboratory results obtained revealing an elevated troponin of 0.046, leukocytosis of 14.7, proBNP 846, otherwise unremarkable. ABG revealed a pH of 7.6, CO2 of 18.5, PO2 of 78.8. Imaging studies obtained included CXR which was independently interpreted by me revealing acute cardiopulmonary process, which is pending final radiology interpretation. CT PE protocol was obtained at this time revealing a pulmonary emboli in the right main pulmonary artery and its branches. Right heart strain is noted. At this time, patient and present at bedside were updated regarding CT results. Patient was started on IV heparin for PE. Differential diagnosis considerations include pulmonary emboli, infectious process such as pneumonia, acute viral syndrome. Comorbidities impacting this visit include recent diagnosis of left lower extremity DVT. I have evaluated and discussed social determinants of health with the patient that could potentially impact subsequent diagnosis and treatment plans. On repeat assessment of the patient, reevaluation revealed that the patient is doing well and is in no acute distress. Patient symptoms have improved since he arrived to our emergency department. Repeat vital signs were all reviewed and noted to be stable. Differential diagnosis and treatment plan were discussed with the patient at bedside. Patient agrees with discussion and after shared medical decision making agrees with admission. All questions were answered to the patient's satisfaction. Case was discussed with the on-call hospitalist Dr. Concepcion at 2124 he accepted admission. Patient is currently on Augmentin for sinus infection home dose was continued BID. Critical care time of 67 minutes, exclusive of separately performed procedures, necessary for treating or preventing eminent or life-threatening deterioration of patient's condition of pulmonary emboli with right heart strain requiring IV heparin infusion, focused on patient care provided personally by me and time spent during initial evaluation, physical examination, ordering and performing treatments and interventions, ordering and reviewing laboratory studies, ordering and reviewing radiographic studies, re-evaluation of the patient's condition, evaluation of the patient's response to treatment, and discussion of patient case with multiple consultants. <Jessica Stanley MD - Last Filed: 08/21/24 21:48> Lab Data Result diagrams: 08/21/24 19:09 08/21/24 19:09 <Genoveva Ellsworth PA-C - Last Filed: 08/21/24 18:26> Labs: Lab Results 08/21/24 Range/Units 19:09 WBC 14.7 H (4.5-10.0) K/mm3 RBC 4.93 (4.6-6.20) M/mm3 Hgb 15.3 (14.0-18.0) g/dL Hct 45.3 (42.0-52.0) % MCV 91.9 (80-100) fl MCH 31.0 (26-34) pg MCHC 33.8 (32-36) g/dl RDW 12.2 (11.5-14.5) % Plt Count 164 (150-375) k/mm3 MPV 10.0 (7.4-10.4) fl Immature Gran % (Auto) 1.2 H (0-0.5) % Neut % (Auto) 83.4 H (45.5-73.1) % Lymph % (Auto) 8.2 L (18.3-44.2) % [place] % (Auto) 6.9 (2.6-8.5) % Eos % (Auto) 0.1 (0-4.4) % Baso % (Auto) 0.2 (0.2-1.2) % Lymph # (Auto) 1.20 (0.9-3.2) K/mm3 [place] # (Auto) 1.0 H (0.1-0.6) K/mm3 Eos # (Auto) 0.0 (0-0.3) K/mm3 Baso # (Auto) 0.0 (0.0-0.1) K/mm3 Abs Immat Gran (auto) 0.18 H (0.00-0.031) K/mm3 Absolute Neuts (auto) 12.3 H (1.3-6.7) K/mm3 Absolute Nucleated RBC 0.000 (0.0-0.012) K/mm3 Nucleated RBC % 0.0 (0.0-0.2) % PT 17.6 H (11.1-14.7) Seconds INR 1.4 APTT 30.4 (22.3-36.8) Seconds Sodium 134 L (137-145) mmol/L Potassium 3.8 (3.4-5.0) mmol/L Chloride 98 (98-107) mmol/L Carbon Dioxide 20 L (22-30) mmol/L Anion Gap 16 H (4-12) mmol/L BUN 21 H (9-20) mg/dL Creatinine 1.28 (0.7-1.3) mg/dL Estim Creat Clear Calc 61 ml/min Estimated GFR 57 L (59 - ) Glucose 110 (65-110) mg/dL Lactic Acid 1.7 (0.7-2.0) mmol/L Calcium 9.1 (8.4-10.2) mg/dL Magnesium 1.9 (1.6-2.3) mg/dL Total Bilirubin 2.0 H (0.2-1.3) mg/dL AST 51 (17-59) U/L ALT 68 H (6-50) U/L Alkaline Phosphatase 125 (38-126) U/L Troponin I 0.046 H* (0.000-0.034) ng/mL NT-Pro-B Natriuret Pep 846 H (19.9-100) pg/mL Total Protein 9.0 H (6.3-8.2) g/dL Albumin 4.2 (3.5-5.1) g/dL Influenza A (RT-PCR) Negative (Negative) Influenza B (RT-PCR) Negative (Negative) RSV (RT-PCR) Negative (Negative) SARS-CoV-2 RNA (RT-PCR) Negative (Negative) <Genoveva Ellsworth PA-C - Last Filed: 08/21/24 18:26> Lab Results 08/21/24 Range/Units 19:09 WBC 14.7 H (4.5-10.0) K/mm3 RBC 4.93 (4.6-6.20) M/mm3 Hgb 15.3 (14.0-18.0) g/dL Hct 45.3 (42.0-52.0) % MCV 91.9 (80-100) fl MCH 31.0 (26-34) pg MCHC 33.8 (32-36) g/dl RDW 12.2 (11.5-14.5) % Plt Count 164 (150-375) k/mm3 MPV 10.0 (7.4-10.4) fl Immature Gran % (Auto) 1.2 H (0-0.5) % Neut % (Auto) 83.4 H (45.5-73.1) % Lymph % (Auto) 8.2 L (18.3-44.2) % [place] % (Auto) 6.9 (2.6-8.5) % Eos % (Auto) 0.1 (0-4.4) % Baso % (Auto) 0.2 (0.2-1.2) % Lymph # (Auto) 1.20 (0.9-3.2) K/mm3 [place] # (Auto) 1.0 H (0.1-0.6) K/mm3 Eos # (Auto) 0.0 (0-0.3) K/mm3 Baso # (Auto) 0.0 (0.0-0.1) K/mm3 Abs Immat Gran (auto) 0.18 H (0.00-0.031) K/mm3 Absolute Neuts (auto) 12.3 H (1.3-6.7) K/mm3 Absolute Nucleated RBC 0.000 (0.0-0.012) K/mm3 Nucleated RBC % 0.0 (0.0-0.2) % PT 17.6 H (11.1-14.7) Seconds INR 1.4 APTT 30.4 (22.3-36.8) Seconds Sodium 134 L (137-145) mmol/L Potassium 3.8 (3.4-5.0) mmol/L Chloride 98 (98-107) mmol/L Carbon Dioxide 20 L (22-30) mmol/L Anion Gap 16 H (4-12) mmol/L BUN 21 H (9-20) mg/dL Creatinine 1.28 (0.7-1.3) mg/dL Estim Creat Clear Calc 61 ml/min Estimated GFR 57 L (59 - ) Glucose 110 (65-110) mg/dL Lactic Acid 1.7 (0.7-2.0) mmol/L Calcium 9.1 (8.4-10.2) mg/dL Magnesium 1.9 (1.6-2.3) mg/dL Total Bilirubin 2.0 H (0.2-1.3) mg/dL AST 51 (17-59) U/L ALT 68 H (6-50) U/L Alkaline Phosphatase 125 (38-126) U/L Troponin I 0.046 H* (0.000-0.034) ng/mL NT-Pro-B Natriuret Pep 846 H (19.9-100) pg/mL Total Protein 9.0 H (6.3-8.2) g/dL Albumin 4.2 (3.5-5.1) g/dL Influenza A (RT-PCR) Negative (Negative) Influenza B (RT-PCR) Negative (Negative) RSV (RT-PCR) Negative (Negative) SARS-CoV-2 RNA (RT-PCR) Negative (Negative) <Jessica Stanley MD - Last Filed: 08/21/24 21:48> ABG Data ABG results: 08/21/24 18:39 Puncture Site Right radial ABG pH 7.604 H* ABG pCO2 18.5 L* ABG pO2 78.8 L ABG PO2/FiO2 Ratio 3.75 ABG HCO3 17.9 L ABG O2 Saturation 97.5 ABG O2 Content 21.4 ABG Base Excess -0.5 A-a Gradient 48.8 Oxyhemoglobin 96.4 Total Hemoglobin 15.8 O2 Delivery Device Room air O2 Liters/Min Not Reportable FiO2 21 <Genoveva Ellsworth PA-C - Last Filed: 08/21/24 18:26> 08/21/24 18:39 Puncture Site Right radial ABG pH 7.604 H* ABG pCO2 18.5 L* ABG pO2 78.8 L ABG PO2/FiO2 Ratio 3.75 ABG HCO3 17.9 L ABG O2 Saturation 97.5 ABG O2 Content 21.4 ABG Base Excess -0.5 A-a Gradient 48.8 Oxyhemoglobin 96.4 Total Hemoglobin 15.8 O2 Delivery Device Room air O2 Liters/Min Not Reportable FiO2 21 <Jessica Stanley MD - Last Filed: 08/21/24 21:48> Critical Care Time Critical Care Time Total Critical Care Time: 67 (Please refer to [facility] for attestation.) <Jessica Stanley MD - Last Filed: 08/21/24 21:48> Discharge Plan Discharge Clinical Impression: Pulmonary emboli, Non-ST elevation AL (NSTEMI) <Genoveva Ellsworth PA-C - Last Filed: 08/21/24 18:26> Patient Disposition: Still a Patient <Genoveva Ellsworth PA-C - Last Filed: 08/21/24 18:26> Condition: Improved <Genoveva Ellsworth PA-C - Last Filed: 08/21/24 18:26> Patient Language: French <Genoveva Ellsworth PA-C - Last Filed: 08/21/24 18:26> Prescriptions: No Action Excedrin Tension Headache 500-65 mg tablet 1 tablet PO Q6H PRN (Reason: headaches) tramadol 50 mg tablet 50 mg PO Q6H PRN (Reason: pain) Qty: 20 0RF sildenafil (pulm.hypertension) 20 mg tablet See Rx Instructions PO DAILY PRN (Reason: sexual activity) Qty: 90 3RF Rx Instructions: take up to 5 tabs 30min - 4hrs prior to activity meloxicam 15 mg tablet 15 mg PO DAILY PRN (Reason: pain) Qty: 30 2RF Xarelto 20 mg tablet 20 mg PO DAILY Qty: 7 0RF Rx Instructions: must administer with evening meal <Genoveva Ellsworth PA-C - Last Filed: 08/21/24 18:26> Follow-up/Referrals: Anayeli Cortez NP [Primary Care Provider] - <Genoveva Ellsowrth PA-C - Last Filed: 08/21/24 18:26> Time of Disposition: 21:48 <Genoveva Ellsworth PA-C - Last Filed: 08/21/24 18:26> 21:48 <Jessica Stanley MD - Last Filed: 08/21/24 21:48>
[2024-08-21 18:42] LABS: Alveolar/Arterial O2 Gradient 48.8 mmHg; Base Excess ABG -0.5 mEq/l (+/-2.0); Fractional Inspired Oxygen 21 %; HCO3 ABG 17.9 mEq/l (22.0-26.0); Oxygen Content ABG 21.4 %vol (16.0-22.0); Oxygen Saturation ABG 97.5 % (95.0-100.0); Oxyhemoglobin 96.4 % THb (90.0-100.0); PO2 ABG 78.8 mmHg (80.0-100.0); PO2 FiO2 Ratio Arterial Blood 3.75 %; Total Hemoglobin 15.8 g/dL (12.0-18.0)
[2024-08-21 18:45] LABS: Device ROOM AIR; Modified Allen's Test Pass; PCO2 ABG 18.5 mmHg (35.0-45.0); Site Drawn RIGHT RADIAL; pH ABG 7.604 (7.350-7.450)
[2024-08-21 19:15] LABS: Basophils Percent Auto 0.2 % (0.2-1.2); Eosinophils Percent Auto 0.1 % (0-4.4); Hematocrit 45.3 % (42.0-52.0); Hemoglobin 15.3 g/dL (14.0-18.0); Immature Granulocyte Absolute 0.18 K/mm3 (0.00-0.031); Immature Granulocyte Percent A 1.2 % (0-0.5); Lymphocytes Percent Auto 8.2 % (18.3-44.2); Mean Corpuscular HGB Conc 33.8 g/dl (32-36); Mean Corpuscular Volume 91.9 fl (80-100); Monocytes Percent Auto 6.9 % (2.6-8.5); Neutrophils Absolute Auto 12.3 K/mm3 (1.3-6.7); Neutrophils Percent Auto 83.4 % (45.5-73.1); Platelet Count Result 164 k/mm3 (150-375); Red Blood Count 4.93 M/mm3 (4.6-6.20); Red Cell Distribution Width 12.2 % (11.5-14.5); White Blood Count 14.7 K/mm3 (4.5-10.0)
--- OUTSIDE RECORDS SUMMARY | 2024-08-21 19:19 | XMS_ITS | CONTINUITY OF CARE DOCUMENT ---
Author Name jose garcia Address Unknown Organization [facility] Address [address] [place] [address] Phone [phone] Care Team Providers Care Helpdesk Analyst Name Role Phone Juno MORSE, Randolph Unavailable JOE SCHULTZ MD Unavailable INSURANCE PROVIDERS Payer name Policy type / Coverage type [place] red green party ID [facility] [id number]
--- OUTSIDE RECORDS SUMMARY | 2024-08-21 19:19 | XMS_ITS | Clinical Summary ---
Author Organization [facility] Address [address] [place] [address] Care Team Providers Care Access Analyst Name Role Phone Phan Taveras MD Primary Care Provider [phone] Allergies No known active allergies Medications sildenafiL [...] Comments Blood Pressure 133/85 04/24/2024 1:59 PM CORE MICROARCHITECT Pulse 70 04/24/2024 1:59 PM CORE MICROARCHITECT Temperature 36.9 C (98.4 F) 04/24/2024 1:59 PM CORE MICROARCHITECT Respiratory Rate 16 04/24/2024 1:59 PM CORE MICROARCHITECT Oxygen Saturation 98% 04/24/2024 1:59 PM CORE MICROARCHITECT Inhaled Oxygen Concentration - - Weight 107 kg (236 lb) 04/24/2024 1:59 PM CORE MICROARCHITECT Height 185.4 cm (6' 1 ) 11/15/2023 2:02 PM CDT Body Mass Index 31.14 11/15/2023 2:02 PM CDT Plan of Treatment Upcoming Encounters Date Type Department Care Team (Late st Contact Info) Description 10/24/2024 3:45 PM CDT Office Visit [facility] Oncology and Hematology [facility] [address] [place] [address] Osmar Sullivan MD [address] [place] [address] Health Maintenance Due Date Last [...] (1 - 1-dose 75+ series) 2036 Insurance [facility] BLUE ACCESS/TRUE BLUE PPO Care Teams Access Analyst Relationship Specialty Start Date End Date Phan Taveras MD [address] [place] [address] [address] [place] [address] PCP - General Family Practice 6/17/24
[2024-08-21 19:25] LABS: Alanine Aminotransferase 68 U/L (6-50); Albumin Level 4.2 g/dL (3.5-5.1); Alkaline Phosphatase 125 U/L (38-126); Anion Gap 16 mmol/L (4-12); Aspartate Amino Transferase 51 U/L (17-59); Blood Urea Nitrogen 21 mg/dL (9-20); Calcium 9.1 mg/dL (8.4-10.2); Carbon Dioxide 20 mmol/L (22-30); Chloride 98 mmol/L (98-107); Estimated CRCL calculation 61 ml/min; Estimated Glomerular Filt Rate 57; Glucose 110 mg/dL (65-110); Lactic Acid Reflex 1.7 mmol/L (0.7-2.0); Magnesium 1.9 mg/dL (1.6-2.3); Potassium 3.8 mmol/L (3.4-5.0); Sodium 134 mmol/L (137-145)
[2024-08-21 19:27] LABS: INR 1.4; Prothrombin Time 17.6 Seconds (11.1-14.7)
[2024-08-21 19:28] LABS: Partial Thromboplastin Time 30.4 Seconds (22.3-36.8)
[2024-08-21 19:47] LABS: NT Pro B Type Natriuretic Pept 846 pg/mL (19.9-100); Troponin I 0.046 ng/mL (0.000-0.034)
[2024-08-21 19:51] LABS: Influenza A QL RT-PCR Negative (Negative); Influenza B QL RT-PCR Negative (Negative); RSV RNA, RT-PCR Negative (Negative); SARS-CoV-2 RNA PCR Negative (Negative)
[2024-08-21] MEDS: ACETAMINOPHEN 500 MG TABLET 1000 MG PO (21:27)
--- NOTE | 2024-08-21 21:33 | PM.IMHP ---
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 The patient was recently diagnosed with DVT on his left leg and was started on Xarelto, and as per the ED physician, he took only one dose of Xarelto. Unfortunately, the patient experienced shortness of breath, fever, and chills on Tuesday. In the ED pertinent lab: WBC 14.7, hemoglobin 15.3, hematocrit 45.3, platelet 164, sodium 134, potassium 3.8, bicarb 20, anion gap 16, glucose 110, total bili 2, AST 51, ALT 68 Troponin 0.046 BNP 846 COVID RSV flu negative EKG: sinus rhythm CTA: PULMONARY ARTERIES: A pulmonary embolism with thrombi is seen in the right main pulmonary artery and its branches. Right heart strain is noted. 1. Pulmonary embolism. 2. Sliding hiatus hernia. 3. No acute lung lesion was seen. The patient will be admitted in the setting of pulmonary embolism with possible right heart strain and PNA. His troponin is elevated, possibly due to the right heart strain from the pulmonary embolism. Will trend the troponin. The possible rise of troponin due to right heart strain, but if it keeps rising, we will consider a Cardiology consult?patient BNP 846. An echocardiogram will be performed in the morning to rule out right heart strain. The patient also possibly has upper respiratory infection sx. In ED started Augmentin and I will add azithromycin for possible pneumonia. The patient has a remote history of DVT on his right leg but never had any investigations performed. Currently, the patient's vitals are stable. Oncology will be consulted, and he follows with Dr Sullivan for MGUS. The patient has recently followed up with orthopedics for left knee pain. His possible DVT is due to immobilization and MGUS plasma cell neoplasm. The patient will be started on the heparin drip. I will monitor the hemoglobin and platelet. During the evaluation patient denies any symptoms. Discussed the possibility of transferring the patient after echocardiogram is performed. Patient also wants to discuss with his lokiorrow and decide if transfer needs to be initiated. Review of Systems Review of Systems: All systems are reviewed and are negative unless stated otherwise in the HPI. [facility], [facility] Past Medical History Medical History Effusion of knee joint Knee injury Left knee DJD Elevated serum creatinine Basal cell carcinoma Screening for colon cancer Elevated serum globulin level Left shoulder pain PUD (peptic ulcer disease) Medial meniscus tear Degenerative joint disease of knee Right knee pain Left knee pain Tobacco use cigars twice weekly Body mass index (BMI) of 31.0 to 31.9 in adult Left knee pain BMI 32.0-32.9,adult Chronic neck pain Dehydration after exertion Palpitation Seasonal allergic rhinitis Vitamin B12 deficiency anemia Male erectile dysfunction, unspecified Mixed hyperlipidemia Family History Family History Father Patient's father is , Onset Age: 31 Family history of malignant neoplasm of testis Social History Social History Years smoked: 15 Smoking status: Never smoker Tobacco type: cigars and smokeless tobacco Second hand tobacco smoke exposure: No Alcohol intake: never Drinks per week: 5 Alcohol use details: socially Substance use: never Substance use type: does not use Do You Feel Safe in your Home?: Yes Lack of Transportation: No Lack of Food: Never True Current Housing: I Have Housing Concerned About Future Housing: No Difficulty Paying Gas/Electric Bills: No Difficulty Paying for Meds: No Currently Unemployed: No Education: High School Diploma/GED Difficulty w/ Childcare or Family Care: No Living arrangements: with family Spiritual care concerns: No Meds Home Medications and Allergies Home Medications ?Medication ?Instructions ?Recorded ?Confirmed ?Type acetaminophen-caffeine 500 mg-65 1 tablet PO Q6H PRN headaches 07/16/19 08/21/24 History mg tablet (Excedrin Tension Headache) sildenafil (pulm.hypertension) 20 See Rx Instructions PO DAILY PRN 03/21/23 08/21/24 Rx mg tablet sexual activity #90 tabs tramadol 50 mg tablet 50 mg PO Q6H PRN pain #20 tabs 07/30/24 08/21/24 Rx rivaroxaban 20 mg tablet (Xarelto) 20 mg PO DAILY #7 tabs 08/20/24 08/21/24 Rx amoxicillin 875 mg-potassium 1 tablet PO Q12H 08/21/24 08/21/24 History clavulanate 125 mg tablet Allergies Allergy/AdvReac Type Severity Reaction Status Date / Time No Known Allergies Allergy Verified 08/21/24 17:43 Vital Signs Vital Signs - 24 hr 08/21/24 17:57 08/21/24 20:52 08/21/24 20:54 Temperature 99 F 102 F H 100.9 F H Pulse Rate 97 89 Respiratory Rate 22 H 14 Blood Pressure 135/75 125/80 Pulse Oximetry 100 99 Exam Narrative: General: Alert, awake, afebrile, in no acute distress. HEENT: PERRL, no rhinorrhea, no post nasal drip, oropharynx clear. Neck: Trachea midline, no JVD, no lymphadenopathy. Cardiovascular: Regular rate and rhythm, no murmurs, rubs or gallops, no peripheral edema. Respiratory: Clear to auscultation bilaterally, no tachypnea, no wheezing, no rhonchi, no rubs, no respiratory distress. Abdomen: Soft, nontender, nondistended, no rebound, no guarding, no peritoneal signs. Musculoskeletal: No joint swelling or deformity, normal muscle tone. Skin: No rashes or petechia, no signs of infection. Psychiatric: Alert and oriented, normal behavior and judgment for situation. Neurological: Alert and oriented to person, place, and time. Follows all commands. No focal deficits, speech is clear and fluent. H&P: Results Labs Labs: Short CBC 08/21/24 Range/Units 19:09 WBC 14.7 H (4.5-10.0) K/mm3 Hgb 15.3 (14.0-18.0) g/dL Hct 45.3 (42.0-52.0) % Plt Count 164 (150-375) k/mm3 BMP 08/21/24 19:09 Sodium 134 L Potassium 3.8 Chloride 98 Carbon Dioxide 20 L BUN 21 H Creatinine 1.28 Glucose 110 Calcium 9.1 Cardiac Enzymes 08/21/24 Range/Units 19:09 Troponin I 0.046 H* (0.000-0.034) ng/mL Liver Function 08/21/24 Range/Units 19:09 Total Bilirubin 2.0 H (0.2-1.3) mg/dL AST 51 (17-59) U/L ALT 68 H (6-50) U/L Alkaline Phosphatase 125 (38-126) U/L Albumin 4.2 (3.5-5.1) g/dL Assessment and Plan Assessment and plan (1) Palpitation: Code(s): R00.2 - Palpitations Status: Acute (2) History of DVT of lower extremity: Code(s): Z86.718 - Personal history of other venous thrombosis and embolism Status: Acute (3) Pulmonary emboli: Code(s): I26.99 - Other pulmonary embolism without acute cor pulmonale Status: Acute (4) PNA (pneumonia): Code(s): J18.9 - Pneumonia, unspecified organism Status: Acute Plan Pulmonary embolism CT shows Will start heparin drip Will monitor hemoglobin and platelet Recent diagnosis of left lower extremity DVT Remote history of Rt lower extremity DVT 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 Follows with PNA Vital signs improved and stable RSV COVID flu negative Started on Amoxil clav and azithromycin monitor cultures MRSA pending encourage oral intake DVT prophylaxis heparin drip Hospitalist MIPS Advance Care Plan I have confirmed that the patient's Advanced Care Plan is present, code status is documented, or surrogate decision maker is listed in patient medical record.: Yes Medication Reconciliation I have utilized all available resources to obtain, update and review the patients current medications (includes all prescriptions, OTC, herbals, cannabis, and nutritional supplements).: Yes
--- NOTE | 2024-08-21 21:41 | ECG_ITS ---
Test Date: 2024-08-21 22:06:00 Measurements Intervals [place] Rate: 102 P: 42 VA: 164 QRS: -20 QRSD: 98 T: 32 QT: 322 QTc: 419 Interpretive Statements SINUS TACHYCARDIA POSSIBLE LEFT ATRIAL ENLARGEMENT BORDERLINE R WAVE PROGRESSION, ANTERIOR LEADS BORDERLINE T WAVE ABNORMALITY- ANTERIOR LEADS BORDERLINE ECG Compared to ECG 08/21/2024 18:49:22 HEART RATE HAS INCREASED Electronically Signed On 08-22-2024 06:43:35 CDT by David Tracey D.O.
[2024-08-21] MEDS: HEPARIN SOD/D5W 100 UNITS/ML 25,000 UNITS/250 ML BAG 15 UNITS IV CONT (22:11)
[2024-08-21] MEDS: AMOXICILLIN/CLAVULANATE K 875-125 MG TAB 1 TABLET PO (22:11)
[2024-08-21] MEDS: HEPARIN SODIUM 5,000 UNITS/ML VIAL 7000 UNITS IV PUSH (22:11)
[2024-08-21 22:32] LABS: Troponin I 0.048 ng/mL (0.000-0.034)
--- NOTE | 2024-08-21 23:02 | ADMGEN ---
This patient, Loyd Canales, was admitted to IMU Room 214-01. Patient/family oriented to hospital policies and general routines including ID bracelet, bed and alarms, visiting hours, pain management, procedures, bathroom and other care routines, personal items, smoking policy, room service/diet, and visiting hours. Information on how to activate the Rapid Response Team has been discussed. Patient/Family are encouraged to report perceived risks to care and to ask questions if they do not understand what they are told or what they should do.
[2024-08-22] VITALS (18 sets, daily range): BP systolic 116–141; BP diastolic 74–84; PULSE 80–102; RESP 14–22; TEMP 36.7–37.2; O2SAT 92–97; BMI 29.1
--- NOTE | 2024-08-22 | ECHO_ITS ---
Patient Info Name: Loyd Canales Age: 63 years : 1960 Gender: Male Ht: 73 in Wt: 223 lbs BSA: 2.30 m2 HR: 88 bpm BP: 141 / 79 mmHg Heart Rhythm: Sinus Rhythm Technical Quality: Fair Exam Date: 08/22/2024 9:55 AM Exam Location: Echo Lab Patient Status: Inpatient Admit Date: 08/21/2024 Staff Ordering Physician: Juan Carlos Campbell MD Outside Sales Inspector: Talita Mandel RDCS Attending Provider: Juan Carlos Campbell MD Exam Type: CA echo doppler color flow Study Info Indications - PE Complete two-dimensional, color flow and Doppler transthoracic echocardiogram is performed. Summary 1. Complete two-dimensional, color flow and Doppler transthoracic echocardiogram is performed. 2. Left ventricular chamber dimension is normal. 3. Left ventricular systolic function is normal, estimated at 60-65%. 4. The left ventricular diastolic function is grade I diastolic dysfunction. 5. E/e' 6 is not elevated. 6. Right ventricular chamber dimension is mildly enlarged. 7. Left atrial chamber dimension is mildly enlarged. 8. There is trace aortic valve regurgitation. 9. No pulmonary hypertension, estimated pulmonary arterial systolic pressure is 36 mmHg. 10. The prox ascending aorta size is borderline dilated at 4.1 cm. Left Ventricle E/e' 6 is not elevated. Left ventricular chamber dimension is normal. Left ventricular systolic function is normal, estimated at 60-65%. The left ventricular diastolic function is grade I diastolic dysfunction. Right Ventricle Right ventricular chamber dimension is mildly enlarged. Right ventricular systolic function is normal. Left Atria Left atrial chamber dimension is mildly enlarged. Right Atria Right atrial chamber dimension is normal. Aortic Valve The aortic valve is trileaflet. There is no aortic valve stenosis. There is trace aortic valve regurgitation. Pulmonic Valve There is no pulmonic regurgitation. Mitral Valve There is no mitral valve stenosis. There is no mitral valve regurgitation. Tricuspid Valve There is no tricuspid valve regurgitation. No pulmonary hypertension, estimated pulmonary arterial systolic pressure is 36 mmHg. Pericardium/Pleural There is no pericardial effusion. Inferior Vena Cava Normal inferior vena cava with >50% collapse upon inspiration consistent with normal right atrial pressure, 5 mmHg. Aorta The prox ascending aorta size is borderline dilated at 4.1 cm. The aortic root size at the sinus of Valsalva is normal. Left Ventricular Outflow Tract Name Value Normal LVOT 2D LVOT Diameter 2.7 cm LVOT Doppler LVOT Peak Gradient 3 mmHg LVOT Mean Gradient 2 mmHg LVOT VTI 17 cm LVOT VTI/AV VTI Ratio 0.8 LVOT Stroke Volume 95 ml LVOT CO 7.2 l/min LVOT CI 3.1 l/min/m2 Pulmonic Valve Name Value Normal RVOT Doppler RVOT Peak Gradient 2 mmHg PV Doppler PV Peak Gradient 4 mmHg Mitral Valve Name Value Normal MV Doppler MV Decel [place] 168 cm/s2 MV PHT 90 ms MV Area (PHT) 2.4 cm2 4.0-5.0 MV Diastolic Function MV E Peak Velocity 52 cm/s MV A Peak Velocity 61 cm/s MV E/A 0.9 MV Decel Time 312 ms MV Annular TDI MV E/e' (Septal) 10.9 <=8.0 MV E/e' (Lateral) 4.8 <=8.0 MV E/e' (Average) 7.9 Tricuspid Valve Name Value Normal TV Regurgitation Doppler TR Peak Velocity 277 cm/s TR Peak Gradient 31 mmHg Estimated PAP/RSVP RA Pressure 5 mmHg <=5 PA Systolic Pressure 36 mmHg <36 RV Systolic Pressure 36 mmHg <36 Aortic Valve Name Value Normal AV Doppler AV Peak Velocity 124 cm/s AV Peak Gradient 6 mmHg AV Mean Gradient 3 mmHg AV VTI 22 cm AV Area (Cont Eq VTI) 4.3 cm2 >=3.0 AV Area (Cont Eq Jaxon) 3.9 cm2 AV Regurgitation 2D LVOT Area 5.6 cm2 Ventricles Name Value Normal LV Dimensions 2D/MM IVS Diastolic Thickness (2D) 1.2 cm 0.6-1.0 LVID Diastole (2D) 6.0 cm 4.2-5.8 LVIW Diastolic Thickness (2D) 0.9 cm 0.6-1.0 LVID Systole (2D) 4.2 cm 2.5-4.0 LVOT Diameter 2.7 cm LV Mass (2D Cubed) 264.88 g 88.00-224.00 LV Mass Index (2D Cubed) 115 g/m2 49-115 Relative Wall Thickness (2D) 0.32 LV Fractional Shortening/Ejection Fraction 2D/MM LV Fractional Shortening (2D) 29 % 25-43 LV EF (2D Teicholz) 55 % 52-72 LV Diastolic Volume (4C MOD) 159 ml LV EF (4C MOD) 66 % LV Diastolic Volume (2C MOD) 139 ml LV EF (2C MOD) 68 % LV Diastolic Volume (BP MOD) 150 ml 62-150 LV Diastolic Volume Index (BP MOD) 65 ml/m2 34-74 LV Systolic Volume (BP MOD) 52 ml 21-61 LV Systolic Volume Index (BP MOD) 22 ml/m2 11-31 LV EF (BP MOD) 65 % 52-72 LV Diastolic Length (4C) 9.8 cm LV Systolic Length (4C) 8.2 cm LV Stroke Volume (4C MOD) 105 ml Atria Name Value Normal LA Dimensions LA Volume (4C A-L) 46 ml LA Volume (BP A-L) 51 ml RA Dimensions RA Area (4C) 20.3 cm2 <=18.0 Report Signatures
[2024-08-22 02:07] LABS: Amphetamine Screen Urine Negative (Negative); Barbiturate Screen Urine Negative (Negative); Benzodiazepines Screen Urine Negative (Negative); Cannabinoid Screen Urine Negative (Negative); Cocaine Screen Urine Negative (Negative); Methadone Screen Urine Negative (Negative); Opiate Screen Urine Negative (Negative); Phencyclidine Screen Urine Negative (Negative)
[2024-08-22 02:24] LABS: Add Urine Microscopic? YES; Appearance Urine Clear (Clear); Bilirubin Urine Negative (Negative); Blood Urine Negative (Negative); Color Urine Dark Yellow (Yellow); Glucose Urine UA Negative (Negative); Ketones Urine 2+ mg/dL (Negative); Leukocyte Esterase Ur Negative LEU/UL (Negative); Nitrate Urine Negative (Negative); Protein Urine 1+ mg/dL (Negative); Specific Grav Ur > 1.045 (1.001-1.035)
[2024-08-22 02:25] LABS: RBC Urine 0-2 /hpf (0-2)
[2024-08-22 02:26] LABS: Bacteria Urine None seen /hpf; Squamous Epithelial Cell Urine None seen /hpf (Few); WBC Urine 0-5 /hpf (0-3)
[2024-08-22 02:27] LABS: Non Pathogenic Casts Present
[2024-08-22 03:00] LABS: MRSA (PCR) NOT DETECTED (NOT DETECTE)
[2024-08-22 04:29] LABS: Basophils Percent Auto 0.2 % (0.2-1.2); Eosinophils Percent Auto 0.1 % (0-4.4); Hematocrit 40.8 % (42.0-52.0); Hemoglobin 13.7 g/dL (14.0-18.0); Immature Granulocyte Absolute 0.22 K/mm3 (0.00-0.031); Immature Granulocyte Percent A 1.6 % (0-0.5); Lymphocytes Absolute Auto 1.47 K/mm3 (0.9-3.2); Lymphocytes Percent Auto 10.4 % (18.3-44.2); Mean Corpuscular HGB Conc 33.6 g/dl (32-36); Mean Corpuscular Volume 92.3 fl (80-100); Mean Platelet Volume 10.3 fl (7.4-10.4); Monocytes Absolute Auto 1.1 K/mm3 (0.1-0.6); Monocytes Percent Auto 7.8 % (2.6-8.5); Neutrophils Absolute Auto 11.4 K/mm3 (1.3-6.7); Neutrophils Percent Auto 79.9 % (45.5-73.1); Platelet Count Result 173 k/mm3 (150-375); Red Blood Count 4.42 M/mm3 (4.6-6.20); Red Cell Distribution Width 12.3 % (11.5-14.5); White Blood Count 14.2 K/mm3 (4.5-10.0)
[2024-08-22 04:46] LABS: Partial Thromboplastin Time 71.4 Seconds (22.3-36.8)
[2024-08-22] MEDS: HYDROcodone/acetaminophen (*CRX) 5-325 MG TABLET 1 TAB PO ×3 (05:59→16:24)
[2024-08-22] MEDS: AMOXICILLIN/CLAVULANATE K 875-125 MG TAB 1 TABLET PO ×2 (09:25→20:39)
[2024-08-22] MEDS: AZITHROMYCIN 250 MG TABLET 500 MG PO (09:25)
[2024-08-22] MEDS: ONDANSETRON INJ 4 MG/2 ML VIAL IV PUSH ×2 (10:43→15:55)
[2024-08-22] MEDS: HEPARIN SODIUM 5,000 UNITS/ML VIAL 3500 UNITS IV PUSH (11:14)
[2024-08-22] MEDS: HEPARIN SOD/D5W 100 UNITS/ML 25,000 UNITS/250 ML BAG 17 UNITS IV CONT (14:20)
[2024-08-22 17:23] LABS: Partial Thromboplastin Time 78.7 Seconds (22.3-36.8)
[2024-08-22] MEDS: PROCHLORPERAZINE EDISYLATE 10 MG/2 ML VIAL IV PUSH ×2 (17:27→23:49)
[2024-08-22] MEDS: metroNIDAZOLE 500 MG/ISO 100ML 500 MG/100 ML BAG 100 MG IVPB ×2 (18:54→23:49)
[2024-08-22] MEDS: levoFLOXacin 750 MG/D5W 150 ML 750 MG/150 ML BAG 100 MG IVPB (18:54)
--- NOTE | 2024-08-22 18:56 | P.PNIM_ITS ---
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 The patient was recently diagnosed with DVT on his left leg and was started on Xarelto, and as per the ED physician, he took only one dose of Xarelto. Unfortunately, the patient experienced shortness of breath, fever, and chills on Tuesday. patient is found to have DVT and PE, started on heparin, patient was complaining of abdominal pain and vomiting and zofran was not helping, gave Compazine and ordered KUB, which showed possible colitis radiologist recommended CT scan of abdomen to further evaluate, started patient on Levaquin and Flagyl, will monitor. 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 The patient was recently diagnosed with DVT on his left leg and was started on Xarelto, and as per the ED physician, he took only one dose of Xarelto. Unfortunately, the patient experienced shortness of breath, fever, and chills on Tuesday. patient is found to have DVT and PE, started on heparin, patient was complaining of abdominal pain and vomiting and zofran was not helping, gave Compazine and ordered KUB, which showed possible colitis radiologist recommended CT scan of abdomen to further evaluate, started patient on Levaquin and Flagyl, will monitor. Review of Systems Review of Systems: All systems are reviewed and are negative unless stated otherwise in the HPI. Exam Narrative: Patient is comfortable, NAD HEENT: eyes are clear and none icteric LUNGS:CTA HEART: RR S1S2 ABD: BS+, Soft and nontender Lower extremities: swelling of left lower extremities SKIN: nonjaundiced Neuro: grossly intact. Objective Data Vital Signs Vital Signs: Vital Signs - 24 hr 08/21/24 20:52 08/21/24 20:54 08/21/24 22:14 Temperature 38.8 C H 38.3 C H Pulse Rate 89 144 H Respiratory Rate 14 14 Blood Pressure 125/80 135/89 Pulse Oximetry 99 98 Oxygen Delivery 08/21/24 22:15 08/21/24 22:18 08/21/24 22:45 Temperature 36.9 C Pulse Rate 103 H Respiratory Rate Blood Pressure Pulse Oximetry 98 Oxygen Delivery Room Air 08/21/24 23:00 08/21/24 23:00 08/21/24 23:21 Temperature 36.9 C Pulse Rate 92 92 93 Respiratory Rate 14 14 Blood Pressure 144/82 H Pulse Oximetry 94 94 Oxygen Delivery Room Air 08/22/24 02:00 08/22/24 03:59 08/22/24 04:00 Temperature 36.8 C Pulse Rate 88 82 85 Respiratory Rate 14 14 Blood Pressure 141/79 H Pulse Oximetry 96 96 Oxygen Delivery Room Air 08/22/24 04:00 08/22/24 06:00 08/22/24 08:00 Temperature Pulse Rate 85 88 88 Respiratory Rate Blood Pressure Pulse Oximetry Oxygen Delivery 08/22/24 08:08 08/22/24 09:03 08/22/24 10:00 Temperature 37.2 C Pulse Rate 88 81 Respiratory Rate 20 Blood Pressure 135/76 Pulse Oximetry 96 92 Oxygen Delivery Room Air 08/22/24 11:47 08/22/24 12:00 08/22/24 14:00 Temperature 36.9 C Pulse Rate 83 87 88 Respiratory Rate 18 Blood Pressure 131/79 Pulse Oximetry 93 Oxygen Delivery 08/22/24 15:59 08/22/24 16:00 08/22/24 18:00 Temperature 37.1 C Pulse Rate 80 102 H 88 Respiratory Rate 18 Blood Pressure 135/80 Pulse Oximetry 94 Oxygen Delivery Intake/Output Intake/Output: Intake & Output 08/19/24 08/20/24 08/21/24 08/22/24 23:59 23:59 23:59 23:59 Intake Total 857.4 Output Total 550 Balance 307.4 Meds/Results Medications: Active Medications Generic Name Dose Route Start Last Admin Trade Name Freq PRN Reason Stop Dose Admin Hydrocodone Bitart/Acetaminophen 1 tab 08/22/24 05:47 08/22/24 16:24 Hydrocodone/Acetaminophen (*Crx) 5-325 Mg Tablet PO 1 tab Q4H PRN Administration Pain Rated 4-6 Amoxicillin/Clavulanate Potassium 1 tablet 08/22/24 09:00 08/22/24 09:25 Amoxicillin/Clavulanate K 875-125 Mg Tab PO 1 tablet Q12HR ASPEN Administration Heparin Sodium (Porcine) 7,000 units 08/21/24 21:36 Heparin Sodium 5,000 Units/Ml Vial IV PUSH PRN PRN aPTT less than 55 seconds Heparin Sodium (Porcine) 3,500 units 08/21/24 21:36 08/22/24 11:14 Heparin Sodium 5,000 Units/Ml Vial IV PUSH 3,500 units PRN PRN Administration aPTT 55 - 70 seconds Heparin Sodium/Dextrose 25,000 units in 250 mls @ 17 mls/hr 08/21/24 21:40 08/22/24 15:27 Heparin Sodium/D5w 100 Units/Ml IV CONT 1,700 units/hr .[id number] ASPEN 17 mls/hr Titration Protocol 1,700 UNITS/HR Metronidazole 500 mg in 100 mls @ 100 mls/hr 08/22/24 17:25 08/22/24 18:54 Flagyl 500 Mg/Iso Soln 100 Ml IVPB 100 mls/hr Q6HR ASPEN Administration Perflutren Lipid Microsphere 0 ml 08/22/24 00:29 Perflutren Lipid Microspheres 1.5 Ml Vial Diluted To 10 Ml Total Volume IV PUSH 08/25/24 00:29 ONCE PRN adequate visualization Protocol Radiology Results: ITS Impressions Chest X-Ray 08/21/24 19:01 IMPRESSION: No acute cardiopulmonary pathology. Prominent bronchovascular markings in the lower lobes bilaterally. Chest CTA 08/21/24 21:18 IMPRESSION: 1. Pulmonary embolism. 2. Sliding hiatus hernia. 3. No acute lung lesion seen. The treating physician was notified 8:25 PM on August 21, 2024. Abdomen X-Ray 08/22/24 16:41 Impression: 1: Absence of haustral markings left colon, suspicious for colitis. Consider correlation with contrast-enhanced CT abdomen/pelvis. Abdomen/Pelvis CT 08/22/24 18:37 IMPRESSION: Significant air opacification of nearly the entirety of the colon without a clear source of obstruction identified. Redemonstration of patient's known pulmonary embolus within the right descending and ascending pulmonary arteries. Labs Labs: Laboratory Results - last 24 hr 08/21/24 08/21/24 08/22/24 19:09 21:57 01:36 WBC 14.7 H RBC 4.93 Hgb 15.3 Hct 45.3 MCV 91.9 MCH 31.0 MCHC 33.8 RDW 12.2 Plt Count 164 MPV 10.0 Immature Gran % (Auto) 1.2 H Neut % (Auto) 83.4 H Lymph % (Auto) 8.2 L [place] % (Auto) 6.9 Eos % (Auto) 0.1 Baso % (Auto) 0.2 Lymph # (Auto) 1.20 [place] # (Auto) 1.0 H Eos # (Auto) 0.0 Baso # (Auto) 0.0 Abs Immat Gran (auto) 0.18 H Absolute Neuts (auto) 12.3 H Absolute Nucleated RBC 0.000 Nucleated RBC % 0.0 PT 17.6 H INR 1.4 APTT 30.4 Sodium 134 L Potassium 3.8 Chloride 98 Carbon Dioxide 20 L Anion Gap 16 H BUN 21 H Creatinine 1.28 Estim Creat Clear Calc 61 Estimated GFR 57 L Glucose 110 Lactic Acid 1.7 Calcium 9.1 Magnesium 1.9 Total Bilirubin 2.0 H AST 51 ALT 68 H Alkaline Phosphatase 125 Troponin I 0.046 H* 0.048 H* NT-Pro-B Natriuret Pep 846 H Total Protein 9.0 H Albumin 4.2 Urine Color Dark yellow Urine Appearance Clear Urine pH 5.0 Ur Specific [place] > 1.045 H Urine Protein 1+ H Urine Glucose (UA) Negative Urine Ketones 2+ H Ur Blood (Man) Negative Urine Nitrate Negative Urine Bilirubin Negative Urine Urobilinogen 1.0 Leukocyte Esterase Rfl Negative Urine RBC 0-2 Urine WBC 0-5 Ur Squamous Epith Cells None seen Urine Bacteria None seen Urine Casts Present Nasal MRSA (PCR) Not detected Urine Opiates Screen Negative Urine Methadone Screen Negative Ur Barbiturates Screen Negative Ur Phencyclidine Scrn Negative Ur Amphetamine Screen Negative U Benzodiazepines Scrn Negative Urine Cocaine Screen Negative U Cannabinoids Screen Negative Influenza A (RT-PCR) Negative Influenza B (RT-PCR) Negative RSV (RT-PCR) Negative SARS-CoV-2 RNA (RT-PCR) Negative 08/22/24 08/22/24 08/22/24 04:07 10:39 17:01 WBC 14.2 H RBC 4.42 L Hgb 13.7 L Hct 40.8 L MCV 92.3 MCH 31.0 MCHC 33.6 RDW 12.3 Plt Count 173 MPV 10.3 Immature Gran % (Auto) 1.6 H Neut % (Auto) 79.9 H Lymph % (Auto) 10.4 L [place] % (Auto) 7.8 Eos % (Auto) 0.1 Baso % (Auto) 0.2 Lymph # (Auto) 1.47 [place] # (Auto) 1.1 H Eos # (Auto) 0.0 Baso # (Auto) 0.0 Abs Immat Gran (auto) 0.22 H Absolute Neuts (auto) 11.4 H Absolute Nucleated RBC 0.000 Nucleated RBC % 0.0 PT INR APTT 71.4 H 56.0 H 78.7 H Sodium Potassium Chloride Carbon Dioxide Anion Gap BUN Creatinine Estim Creat Clear Calc Estimated GFR Glucose Lactic Acid Calcium Magnesium Total Bilirubin AST ALT Alkaline Phosphatase Troponin I 0.040 H* NT-Pro-B Natriuret Pep Total Protein Albumin Urine Color Urine Appearance Urine pH Ur Specific [place] Urine Protein Urine Glucose (UA) Urine Ketones Ur Blood (Man) Urine Nitrate Urine Bilirubin Urine Urobilinogen Leukocyte Esterase Rfl Urine RBC Urine WBC Ur Squamous Epith Cells Urine Bacteria Urine Casts Nasal MRSA (PCR) Urine Opiates Screen Urine Methadone Screen Ur Barbiturates Screen Ur Phencyclidine Scrn Ur Amphetamine Screen U Benzodiazepines Scrn Urine Cocaine Screen U Cannabinoids Screen Influenza A (RT-PCR) Influenza B (RT-PCR) RSV (RT-PCR) SARS-CoV-2 RNA (RT-PCR)
[2024-08-22 23:47] LABS: Partial Thromboplastin Time 73.2 Seconds (22.3-36.8)
[2024-08-23] VITALS (17 sets, daily range): BP systolic 124–149; BP diastolic 72–79; PULSE 71–90; RESP 18–22; TEMP 36.6–37.2; O2SAT 96–98
[2024-08-23] MEDS: HEPARIN SOD/D5W 100 UNITS/ML 25,000 UNITS/250 ML BAG 17 UNITS IV CONT (05:13)
[2024-08-23] MEDS: metroNIDAZOLE 500 MG/ISO 100ML 500 MG/100 ML BAG 100 MG IVPB ×4 (05:14→23:27)
[2024-08-23] MEDS: HYDROcodone/acetaminophen (*CRX) 5-325 MG TABLET 1 TAB PO ×4 (05:23→18:40)
[2024-08-23] MEDS: AMOXICILLIN/CLAVULANATE K 875-125 MG TAB 1 TABLET PO (08:47)
[2024-08-23] MEDS: SODIUM CHLORIDE 0.9% IV 1,000 ML 100 ML IV CONT ×2 (09:46→20:31)
[2024-08-23 09:47] LABS: Hematocrit 40.6 % (42.0-52.0); Hemoglobin 13.8 g/dL (14.0-18.0); Mean Corpuscular Hemoglobin 31.2 pg (26-34); Mean Corpuscular Volume 91.9 fl (80-100); Mean Platelet Volume 9.8 fl (7.4-10.4); Platelet Count Result 219 k/mm3 (150-375); Red Blood Count 4.42 M/mm3 (4.6-6.20); Red Cell Distribution Width 12.2 % (11.5-14.5); White Blood Count 12.8 K/mm3 (4.5-10.0)
[2024-08-23 10:03] LABS: Alanine Aminotransferase 50 U/L (6-50); Albumin Level 3.7 g/dL (3.5-5.1); Alkaline Phosphatase 109 U/L (38-126); Anion Gap 10 mmol/L (4-12); Aspartate Amino Transferase 34 U/L (17-59); Bilirubin,Total 1.2 mg/dL (0.2-1.3); Blood Urea Nitrogen 23 mg/dL (9-20); Calcium 8.7 mg/dL (8.4-10.2); Carbon Dioxide 25 mmol/L (22-30); Chloride 94 mmol/L (98-107); Estimated CRCL calculation 62 ml/min; Estimated Glomerular Filt Rate 59; Glucose 130 mg/dL (65-110); Magnesium 2.1 mg/dL (1.6-2.3); Potassium 3.6 mmol/L (3.4-5.0); Sodium 129 mmol/L (137-145)
[2024-08-23] MEDS: SIMETHICONE 125 MG CHEW TAB PO ×4 (10:05→20:28)
[2024-08-23] MEDS: ACIDOPHILUS/BULGARICUS CHEWABLE TABLET 1 TABLET PO ×3 (12:14→20:28)
--- NOTE | 2024-08-23 17:01 | P.PNIM_ITS ---
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 The patient was recently diagnosed with DVT on his left leg and was started on Xarelto, and as per the ED physician, he took only one dose of Xarelto. Unfortunately, the patient experienced shortness of breath, fever, and chills on Tuesday. patient is found to have DVT and PE, started on heparin, will switch patient to oral anticoagulation, patient was started on xalreto, patient was complaining of abdominal pain and vomiting and zofran was not helping, gave Compazine and ordered KUB, which showed possible colitis radiologist recommended CT scan of abdomen to further evaluate, started patient on Levaquin and Flagyl, will monitor. CT scan showed significant air opacification of nearly the entirety of the colon without a clear source of obstruction identified and patient also complaints gas and has not had a good BM, will give simethicone and stool softener and monitor, patient still complaint of pain in left lower leg most likely due to DVT, will PT work with the patient gently. 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 The patient was recently diagnosed with DVT on his left leg and was started on Xarelto, and as per the ED physician, he took only one dose of Xarelto. Unfortunately, the patient experienced shortness of breath, fever, and chills on Tuesday. patient is found to have DVT and PE, started on heparin, will switch patient to oral anticoagulation, patient was started on xalreto, patient was complaining of abdominal pain and vomiting and zofran was not helping, gave Compazine and ordered KUB, which showed possible colitis radiologist recommended CT scan of abdomen to further evaluate, started patient on Levaquin and Flagyl, will monitor. CT scan showed significant air opacification of nearly the entirety of the colon without a clear source of obstruction identified and patient also complaints gas and has not had a good BM, will give simethicone and stool softener and monitor, patient still complaint of pain in left lower leg most likely due to DVT, will PT work with the patient gently. will monitor Review of Systems Review of Systems: All systems are reviewed and are negative unless stated otherwise in the HPI. Exam Narrative: Patient is comfortable, NAD HEENT: eyes are clear and none icteric LUNGS:CTA HEART: RR S1S2 ABD: BS+, Soft and nontender Lower extremities: swelling of left lower extremities SKIN: nonjaundiced Neuro: grossly intact. Objective Data Vital Signs Vital Signs: Vital Signs - 24 hr 08/22/24 18:00 08/22/24 19:49 08/22/24 20:00 Temperature 36.9 C Pulse Rate 88 101 H 98 Respiratory Rate 22 H 22 H Blood Pressure 116/74 Pulse Oximetry 95 95 Oxygen Delivery Room Air 08/22/24 20:00 08/22/24 21:39 08/22/24 23:27 Temperature 36.7 C Pulse Rate 98 89 93 Respiratory Rate 22 H Blood Pressure 139/84 Pulse Oximetry 97 Oxygen Delivery 08/23/24 00:00 08/23/24 00:00 08/23/24 02:00 Temperature Pulse Rate 85 85 86 Respiratory Rate 22 H Blood Pressure Pulse Oximetry 97 Oxygen Delivery Room Air 08/23/24 04:00 08/23/24 04:00 08/23/24 04:00 Temperature 36.6 C Pulse Rate 88 85 85 Respiratory Rate 22 H 22 H Blood Pressure 125/74 Pulse Oximetry 98 98 Oxygen Delivery Room Air 08/23/24 06:00 08/23/24 07:58 08/23/24 08:00 Temperature 37.1 C Pulse Rate 82 80 Respiratory Rate 20 Blood Pressure 124/72 Pulse Oximetry 96 Oxygen Delivery Room Air 08/23/24 08:00 08/23/24 10:00 08/23/24 12:00 Temperature Pulse Rate 74 84 Respiratory Rate Blood Pressure Pulse Oximetry Oxygen Delivery Room Air 08/23/24 12:00 08/23/24 12:06 08/23/24 15:57 Temperature 37.2 C 36.6 C Pulse Rate 79 80 77 Respiratory Rate 18 20 Blood Pressure 149/76 H 141/79 H Pulse Oximetry 97 96 Oxygen Delivery Intake/Output Intake/Output: Intake & Output 08/20/24 08/21/24 08/22/24 08/23/24 23:59 23:59 23:59 23:59 Intake Total 1677.4 881 Output Total 550 550 Balance 1127.4 331 Meds/Results Medications: Active Medications Generic Name Dose Route Start Last Admin Trade Name Freq PRN Reason Stop Dose Admin Hydrocodone Bitart/Acetaminophen 1 tab 08/22/24 05:47 08/23/24 14:20 Hydrocodone/Acetaminophen (*Crx) 5-325 Mg Tablet PO 1 tab Q4H PRN Administration Pain Rated 4-6 Heparin Sodium (Porcine) 7,000 units 08/21/24 21:36 Heparin Sodium 5,000 Units/Ml Vial IV PUSH PRN PRN aPTT less than 55 seconds Heparin Sodium (Porcine) 3,500 units 08/21/24 21:36 08/22/24 11:14 Heparin Sodium 5,000 Units/Ml Vial IV PUSH 3,500 units PRN PRN Administration aPTT 55 - 70 seconds Heparin Sodium/Dextrose 25,000 units in 250 mls @ 17 mls/hr 08/21/24 21:40 08/23/24 05:13 Heparin Sodium/D5w 100 Units/Ml IV CONT 1,700 units/hr .[id number] ASPEN 17 mls/hr Administration Protocol 1,700 UNITS/HR Metronidazole 500 mg in 100 mls @ 100 mls/hr 08/22/24 17:25 08/23/24 12:13 Flagyl 500 Mg/Iso Soln 100 Ml IVPB 100 mls/hr Q6HR ASPEN Administration Sodium Chloride 1,000 mls @ 100 mls/hr 08/23/24 09:25 08/23/24 09:46 Normal Saline Iv IV CONT 100 mls/hr .Q10H ASPEN Administration Lactobacillus Acidophilus 1 tablet 08/23/24 13:00 08/23/24 12:14 Acidophilus/[place] Chewable Tablet PO 1 tablet QID ASPEN Administration Perflutren Lipid Microsphere 0 ml 08/22/24 00:29 Perflutren Lipid Microspheres 1.5 Ml Vial Diluted To 10 Ml Total Volume IV PUSH 08/25/24 00:29 ONCE PRN adequate visualization Protocol Prochlorperazine Edisylate 10 mg 08/22/24 23:38 08/22/24 23:49 Prochlorperazine Edisylate 10 Mg/2 Ml Vial IV PUSH 08/23/24 23:37 10 mg Q6H PRN Administration Nausea And Vomiting Simethicone 125 mg 08/23/24 09:45 08/23/24 12:14 Simethicone 125 Mg Chew Tab PO 125 mg QID ASPEN Administration Radiology Results: ITS Impressions Chest X-Ray 08/21/24 19:01 IMPRESSION: No acute cardiopulmonary pathology. Prominent bronchovascular markings in the lower lobes bilaterally. Chest CTA 08/21/24 21:18 IMPRESSION: 1. Pulmonary embolism. 2. Sliding hiatus hernia. 3. No acute lung lesion seen. The treating physician was notified 8:25 PM on August 21, 2024. Abdomen X-Ray 08/22/24 16:41 Impression: 1: Absence of haustral markings left colon, suspicious for colitis. Consider correlation with contrast-enhanced CT abdomen/pelvis. Abdomen/Pelvis CT 08/22/24 18:37 IMPRESSION: Significant air opacification of nearly the entirety of the colon without a clear source of obstruction identified. Redemonstration of patient's known pulmonary embolus within the right descending and ascending pulmonary arteries. Labs Labs: Laboratory Results - last 24 hr 08/22/24 08/22/24 08/23/24 17:01 23:23 09:31 WBC 12.8 H RBC 4.42 L Hgb 13.8 L Hct 40.6 L MCV 91.9 MCH 31.2 MCHC 34.0 RDW 12.2 Plt Count 219 MPV 9.8 APTT 78.7 H 73.2 H Sodium 129 L Potassium 3.6 Chloride 94 L Carbon Dioxide 25 Anion Gap 10 BUN 23 H Creatinine 1.24 Estim Creat Clear Calc 62 Estimated GFR 59 Glucose 130 H Calcium 8.7 Magnesium 2.1 Total Bilirubin 1.2 AST 34 ALT 50 Alkaline Phosphatase 109 Total Protein 8.0 Albumin 3.7
[2024-08-23] MEDS: PROCHLORPERAZINE EDISYLATE 10 MG/2 ML VIAL IV PUSH (20:27)
[2024-08-23] MEDS: RIVAROXABAN 15 MG TABLET PO (20:27)
[2024-08-23] MEDS: levoFLOXacin 750 MG/D5W 150 ML 750 MG/150 ML BAG 100 MG IVPB (20:28)
[2024-08-23] MEDS: SENNOSIDES 8.6 MG TABLET PO (20:28)
[2024-08-24] VITALS (15 sets, daily range): BP systolic 126–136; BP diastolic 67–81; PULSE 72–83; RESP 18–20; TEMP 36.6–37.3; O2SAT 96–98
[2024-08-24 05:39] LABS: Partial Thromboplastin Time 39.9 Seconds (22.3-36.8)
[2024-08-24] MEDS: metroNIDAZOLE 500 MG/ISO 100ML 500 MG/100 ML BAG 100 MG IVPB ×4 (05:50→23:41)
[2024-08-24] MEDS: SODIUM CHLORIDE 0.9% IV 1,000 ML 100 ML IV CONT ×2 (05:50→18:06)
[2024-08-24] MEDS: ACIDOPHILUS/BULGARICUS CHEWABLE TABLET 1 TABLET PO ×4 (08:35→20:28)
[2024-08-24] MEDS: RIVAROXABAN 15 MG TABLET PO ×2 (08:35→20:28)
[2024-08-24] MEDS: SIMETHICONE 125 MG CHEW TAB PO ×4 (08:35→20:28)
[2024-08-24 10:12] LABS: Hematocrit 38.2 % (42.0-52.0); Hemoglobin 12.5 g/dL (14.0-18.0); Mean Corpuscular HGB Conc 32.7 g/dl (32-36); Mean Corpuscular Hemoglobin 31.1 pg (26-34); Mean Platelet Volume 10.2 fl (7.4-10.4); Platelet Count Result 213 k/mm3 (150-375); Red Blood Count 4.02 M/mm3 (4.6-6.20); Red Cell Distribution Width 12.4 % (11.5-14.5); White Blood Count 9.6 K/mm3 (4.5-10.0)
[2024-08-24 10:39] LABS: Alanine Aminotransferase 39 U/L (6-50); Albumin Level 3.2 g/dL (3.5-5.1); Alkaline Phosphatase 93 U/L (38-126); Anion Gap 10 mmol/L (4-12); Aspartate Amino Transferase 33 U/L (17-59); Bilirubin,Total 0.9 mg/dL (0.2-1.3); Blood Urea Nitrogen 20 mg/dL (9-20); Calcium 8.2 mg/dL (8.4-10.2); Carbon Dioxide 23 mmol/L (22-30); Chloride 97 mmol/L (98-107); Estimated CRCL calculation 90 ml/min; Estimated Glomerular Filt Rate > 60; Glucose 113 mg/dL (65-110); Magnesium 2.2 mg/dL (1.6-2.3); Potassium 3.5 mmol/L (3.4-5.0); Sodium 130 mmol/L (137-145)
[2024-08-24] MEDS: ACETAMINOPHEN 325 MG TABLET 650 MG PO ×2 (10:45→20:27)
--- NOTE | 2024-08-24 11:00 | PC.NURSE ---
On 08/24/24, the student, [Shawn Sharp], provided care and completed [facility] documentation on this patient. I have reviewed the student's documentation and agree with the findings.
[2024-08-24] MEDS: HYDROcodone/acetaminophen (*CRX) 5-325 MG TABLET 1 TAB PO (16:15)
[2024-08-24] MEDS: PROCHLORPERAZINE EDISYLATE 10 MG/2 ML VIAL IV PUSH (16:16)
--- NOTE | 2024-08-24 18:48 | P.PNIM_ITS ---
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 The patient was recently diagnosed with DVT on his left leg and was started on Xarelto, and as per the ED physician, he took only one dose of Xarelto. Unfortunately, the patient experienced shortness of breath, fever, and chills on Tuesday. patient is found to have DVT and PE, started on heparin, will switch patient to oral anticoagulation, patient was started on xalreto, today patient oxygen saturation is 96% at RA, he clinically appears comfortable, patient was complaining of abdominal pain and vomiting and zofran was not helping, gave Compazine and ordered KUB, which showed possible colitis radiologist recommended CT scan of abdomen to further evaluate, started patient on Levaquin and Flagyl, will monitor. CT scan showed significant air opacification of nearly the entirety of the colon without a clear source of obstruction identified and patient also complaints gas and has not had a good BM, will give simethicone and stool softener and monitor, today patient had loose BM, patient still complaint of pain in left lower leg most likely due to DVT as well as patient has history of moderate degenerative change of the patellofemoral compartment. Mild degenerative change of the medial and lateral compartments on recent MRI of left knee. patient is present gave updates will PT work with the patient gently. 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 The patient was recently diagnosed with DVT on his left leg and was started on Xarelto, and as per the ED physician, he took only one dose of Xarelto. Unfortunately, the patient experienced shortness of breath, fever, and chills on Tuesday. patient is found to have DVT and PE, started on heparin, will switch patient to oral anticoagulation, patient was started on xalreto, today patient oxygen saturation is 96% at RA, he clinically appears comfortable, patient was complaining of abdominal pain and vomiting and zofran was not helping, gave Compazine and ordered KUB, which showed possible colitis radiologist recommended CT scan of abdomen to further evaluate, started patient on Levaquin and Flagyl, will monitor. CT scan showed significant air opacification of nearly the entirety of the colon without a clear source of obstruction identified and patient also complaints gas and has not had a good BM, will give simethicone and stool softener and monitor, today patient had loose BM, patient still complaint of pain in left lower leg most likely due to DVT as well as patient has history of moderate degenerative change of the patellofemoral compartment. Mild degen erative change of the medial and lateral compartments on recent MRI of left knee. will PT work with the patient gently. will monitor Review of Systems Review of Systems: All systems are reviewed and are negative unless stated otherwise in the HPI. Exam Narrative: Patient is comfortable, NAD HEENT: eyes are clear and none icteric LUNGS:CTA HEART: RR S1S2 ABD: BS+, Soft and nontender Lower extremities: swelling of left lower extremities SKIN: nonjaundiced Neuro: grossly intact. Objective Data Vital Signs Vital Signs: Vital Signs - 24 hr 08/23/24 20:00 08/23/24 20:00 08/23/24 20:00 Temperature 36.7 C Pulse Rate 75 83 83 Respiratory Rate 20 20 Blood Pressure 145/76 H Pulse Oximetry 98 98 Oxygen Delivery Room Air 08/23/24 22:00 08/23/24 23:25 08/23/24 23:49 Temperature 36.6 C Pulse Rate 90 89 86 Respiratory Rate 20 20 Blood Pressure 131/79 Pulse Oximetry 96 96 Oxygen Delivery Room Air 08/23/24 23:49 08/24/24 02:00 08/24/24 04:00 Temperature 36.6 C Pulse Rate 86 74 77 Respiratory Rate 20 Blood Pressure 135/70 Pulse Oximetry 96 Oxygen Delivery 08/24/24 04:00 08/24/24 04:00 08/24/24 05:31 Temperature Pulse Rate 78 78 72 Respiratory Rate 20 Blood Pressure Pulse Oximetry 96 Oxygen Delivery Room Air 08/24/24 08:00 08/24/24 08:00 08/24/24 08:00 Temperature 36.8 C Pulse Rate 75 78 Respiratory Rate 20 Blood Pressure 126/67 Pulse Oximetry 98 Oxygen Delivery Room Air 08/24/24 10:00 08/24/24 10:22 08/24/24 11:40 Temperature 36.8 C Pulse Rate 79 75 Respiratory Rate 18 Blood Pressure 131/79 Pulse Oximetry 97 Oxygen Delivery Room Air 08/24/24 12:00 08/24/24 12:00 08/24/24 14:00 Temperature Pulse Rate 76 76 Respiratory Rate Blood Pressure Pulse Oximetry Oxygen Delivery Room Air 08/24/24 16:00 08/24/24 16:00 08/24/24 16:03 Temperature 36.6 C Pulse Rate 82 83 Respiratory Rate 19 Blood Pressure 133/81 Pulse Oximetry 96 Oxygen Delivery Room Air 08/24/24 18:00 Temperature Pulse Rate 76 Respiratory Rate Blood Pressure Pulse Oximetry Oxygen Delivery Intake/Output Intake/Output: Intake & Output 08/21/24 08/22/24 08/23/2418/25 23:59 23:59 23:59 23:59 Intake Total 1677.4 2516.7 3336.7 Output Total 550 550 Balance 1127.4 1966.7 3336.7 Meds/Results Medications: Active Medications Generic Name Dose Route Start Last Admin Trade Name Freq PRN Reason Stop Dose Admin Acetaminophen 650 mg 08/24/24 10:18 08/24/24 10:45 Acetaminophen 325 Mg Tablet PO 650 mg Q6H PRN Administration Mild Pain (1-3) or Headache Hydrocodone Bitart/Acetaminophen 1 tab 08/22/24 05:47 08/24/24 16:15 Hydrocodone/Acetaminophen (*Crx) 5-325 Mg Tablet PO 1 tab Q4H PRN Administration Pain Rated 4-6 Metronidazole 500 mg in 100 mls @ 100 mls/hr 08/22/24 17:25 08/24/24 18:06 Flagyl 500 Mg/Iso Soln 100 Ml IVPB 100 mls/hr Q6HR ASPEN Administration Sodium Chloride 1,000 mls @ 100 mls/hr 08/23/24 09:25 08/24/24 18:06 Normal Saline Iv IV CONT 100 mls/hr .Q10H ASPEN Administration Levofloxacin/Dextrose 750 mg in 150 mls @ 100 mls/hr 08/23/24 20:00 08/24/24 14:42 Levaquin 750 Mg/D5w 150 Ml IVPB Infused Q24H ASPEN Infusion Lactobacillus Acidophilus 1 tablet 08/23/24 13:00 08/24/24 16:15 Acidophilus/Bulgaricus Chewable Tablet PO 1 tablet QID ASPEN Administration Perflutren Lipid Microsphere 0 ml 08/22/24 00:29 Perflutren Lipid Microspheres 1.5 Ml Vial Diluted To 10 Ml Total Volume IV PUSH 08/25/24 00:29 ONCE PRN adequate visualization Protocol Prochlorperazine Edisylate 10 mg 08/24/24 16:00 08/24/24 16:16 Prochlorperazine Edisylate 10 Mg/2 Ml Vial IV PUSH 10 mg Q6H PRN Administration Nausea And Vomiting Rivaroxaban 15 mg 08/23/24 20:00 08/24/24 08:35 Rivaroxaban 15 Mg Tablet PO 09/13/24 09:01 15 mg Q12HR ASPEN Administration Rivaroxaban 20 mg 05/09/25 17:00 Rivaroxaban 20 Mg Tablet PO DAILY@1700 [facility] Senna 8.6 mg 08/23/24 21:00 08/23/24 20:28 Sennosides 8.6 Mg Tablet PO 8.6 mg HS ASPEN Administration Simethicone 125 mg 08/23/24 09:45 08/24/24 16:15 Simethicone 125 Mg Chew Tab PO 125 mg QID ASPEN Administration Radiology Results: ITS Impressions Chest X-Ray 08/21/24 19:01 IMPRESSION: No acute cardiopulmonary pathology. Prominent bronchovascular markings in the lower lobes bilaterally. Chest CTA 08/21/24 21:18 IMPRESSION: 1. Pulmonary embolism. 2. Sliding hiatus hernia. 3. No acute lung lesion seen. The treating physician was notified 8:25 PM on August 21, 2024. Abdomen X-Ray 08/22/24 16:41 Impression: 1: Absence of haustral markings left colon, suspicious for colitis. Consider correlation with contrast-enhanced CT abdomen/pelvis. Abdomen/Pelvis CT 08/22/24 18:37 IMPRESSION: Significant air opacification of nearly the entirety of the colon without a clear source of obstruction identified. Redemonstration of patient's known pulmonary embolus within the right descending and ascending pulmonary arteries. Labs Labs: Laboratory Results - last 24 hr 08/24/24 03:50 WBC 9.6 RBC 4.02 L Hgb 12.5 L Hct 38.2 L MCV 95.0 MCH 31.1 MCHC 32.7 RDW 12.4 Plt Count 213 MPV 10.2 APTT 39.9 H Sodium 130 L Potassium 3.5 Chloride 97 L Carbon Dioxide 23 Anion Gap 10 BUN 20 Creatinine 0.95 Estim Creat Clear Calc 90 Estimated GFR > 60 Glucose 113 H Calcium 8.2 L Magnesium 2.2 Total Bilirubin 0.9 AST 33 ALT 39 Alkaline Phosphatase 93 Total Protein 7.0 Albumin 3.2 L
[2024-08-24] MEDS: levoFLOXacin 750 MG/D5W 150 ML 750 MG/150 ML BAG 100 MG IVPB (20:27)
[2024-08-24] MEDS: SENNOSIDES 8.6 MG TABLET PO (20:29)
[2024-08-25] VITALS (12 sets, daily range): BP systolic 122–143; BP diastolic 73–79; PULSE 73–87; RESP 16–24; TEMP 36.9–37.3; O2SAT 97–100
[2024-08-25 04:30] LABS: Hematocrit 35.7 % (42.0-52.0); Hemoglobin 11.9 g/dL (14.0-18.0); Mean Corpuscular HGB Conc 33.3 g/dl (32-36); Mean Corpuscular Hemoglobin 31.4 pg (26-34); Mean Corpuscular Volume 94.2 fl (80-100); Mean Platelet Volume 9.6 fl (7.4-10.4); Platelet Count Result 231 k/mm3 (150-375); Red Blood Count 3.79 M/mm3 (4.6-6.20); Red Cell Distribution Width 12.2 % (11.5-14.5); White Blood Count 8.6 K/mm3 (4.5-10.0)
[2024-08-25 04:39] LABS: Anion Gap 9 mmol/L (4-12); Blood Urea Nitrogen 16 mg/dL (9-20); Carbon Dioxide 22 mmol/L (22-30); Chloride 100 mmol/L (98-107); Estimated CRCL calculation 93 ml/min; Estimated Glomerular Filt Rate > 60; Glucose 108 mg/dL (65-110); Magnesium 1.9 mg/dL (1.6-2.3); Potassium 3.1 mmol/L (3.4-5.0); Sodium 131 mmol/L (137-145)
[2024-08-25] MEDS: metroNIDAZOLE 500 MG/ISO 100ML 500 MG/100 ML BAG 100 MG IVPB ×3 (05:34→16:14)
[2024-08-25] MEDS: SODIUM CHLORIDE 0.9% IV 1,000 ML 100 ML IV CONT ×2 (05:34→16:15)
[2024-08-25] MEDS: SIMETHICONE 125 MG CHEW TAB PO ×3 (08:24→16:16)
[2024-08-25] MEDS: RIVAROXABAN 15 MG TABLET PO (08:24)
[2024-08-25] MEDS: ACIDOPHILUS/BULGARICUS CHEWABLE TABLET 1 TABLET PO ×3 (08:24→16:16)
[2024-08-25] MEDS: ACETAMINOPHEN 325 MG TABLET 650 MG PO ×2 (11:37→18:26)
[2024-08-25] MEDS: POTASSIUM CHLORIDE 20 MEQ ER TABLET 40 MEQ PO (13:23)
--- NOTE | 2024-08-25 14:48 | WPDONCCN ---
Assessment and Plan Assessment and plan (1) Pulmonary emboli: Code(s): I26.99 - Other pulmonary embolism without acute cor pulmonale Status: Acute Plan Pulmonary embolism and Left Lower Extremity DVT- On 08/10/24 patient underwent left knee procedure with drainage of left knee effusion as well as steroid injection by orthopedic physician as outpatient. Patient reports that 08/18/24 he started having left leg swelling and pain. He was seen in the ER on 08/21/24 and underwent bilateral Lower extremity doppler on 08/21/24 which showed left lower extremity DVT with noncompressibility and absence of flow are identified within the left common femoral, femoral, popliteal, peroneal and posterior tibial veins. Right lower extremity was normal. Patient was started on Xarelto 20mg dose and took one dose on 08/21/24. Patient then presented to ER again on 08/22/24 with shortness of breath, upper respiratory symptoms and chest discomfort. A CTA chest was done on 08/22/24 which showed pulmonary embolism thrombi in the right main pulmonary artery and its branches. Right heart strain was noted. Patient underwent echocardiogram which showed no significant findings. patient was started on heparin drip and now transitioned to xarelto loading dose with 15mg PO BID. Patient has hx of previous thrombosis in RLE after right ankle fracture in 2013. He had fixed duration anticoagulation. 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 He was in crutches for 3 days after 08/10/24 procedure and not ambulating at his baseline. I believe this is also provoked thrombosis but extent of the clot burden is significant in LLE as well as right main pulmonary artery and branches. He at least needs 6 months of anticoagulation and then discussion with charger operator Dr. Sullivan on intermediate plan given MGUS. Patient also has no improvement in pain in LLE and underwent another venous doppler on, 08/25/24 with no change in extensive thrombosis. This could be due to extent of thrombosis and clot burden. If pain persists, he will need vascular surgery consult for thrombectomy. I recommended that patient follow up with Dr. Sullivan in outpatient clinic in 4 weeks for post hospital follow up and outpatient DOAC management. For MGUS he has already established care with Dr. Sullivan. 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 Patient does not recall anticoagulation type or duration then. On 08/10/24 patient underwent left knee procedure with drainage of left knee effusion as well as steroid injection by orthopedic physician as outpatient. Patient reports that 08/18/24 he started having left leg swelling and pain. He was seen in the ER on 08/21/24 and underwent bilateral Lower extremity doppler on 08/21/24 which showed left lower extremity DVT with noncompressibility and absence of flow are identified within the left common femoral, femoral, popliteal, peroneal and posterior tibial veins. Right lower extremity was normal. Patient was started on Xarelto 20mg dose and took one dose on 08/21/24. Patient then presented to ER again on 08/22/24 with shortness of breath, upper respiratory symptoms and chest discomfort. A CTA chest was done on 08/22/24 which showed pulmonary embolism thrombi in the right main pulmonary artery and its branches. Right heart strain was noted. Patient underwent echocardiogram which showed no significant findings. patient was started on heparin drip and now transitioned to xarelto. Patient continues to have Left leg pain and underwent another venous doppler today, 08/25/24, with no change in extensive thrombosis. Dyspnea has resolved. Patient also reported abdominal pain and CT abd/pelvis done 08/22/24 showed significant air opacification of nearly the entirety of the colon without a clear source of obstruction identified. patient was passing gas and hard stool. He is started on laxatives which led to loose BM. He is also on levofloxacin and flagyl for colitis. Patient sees Dr. Sullivan for MGUS diagnosed 12/2023 after bone marrow biopsy showing 2.5% monoclonal plasma cells on bone marrow biopsy. His last visit with Dr. Sullivan was on 04/2024. He is to see him 10/2024. Hematology is consulted as inpatient for acute thrombosis. Review of Systems Review of Systems: Patient reports continued pain in left calf and difficulty with ambulation due to pain. chest discomfort and dyspnea has resolved. No abdominal pain now. Had loose BM in past few days. No f/c, night sweats. URI symptoms has resolved. Rest of 12 point ROS is negative. [facility] Past Medical History Medical History Effusion of knee joint Knee injury Left knee DJD Elevated serum creatinine Basal cell carcinoma Screening for colon cancer Elevated serum globulin level Left shoulder pain PUD (peptic ulcer disease) Medial meniscus tear Degenerative joint disease of knee Right knee pain Left knee pain Tobacco use cigars twice weekly Body mass index (BMI) of 31.0 to 31.9 in adult Left knee pain BMI 32.0-32.9,adult Chronic neck pain Dehydration after exertion Palpitation Seasonal allergic rhinitis Vitamin B12 deficiency anemia Male erectile dysfunction, unspecified Mixed hyperlipidemia Family History Family History Father Patient's father is , Onset Age: 31 Family history of malignant neoplasm of testis Social History Social History Years smoked: 15 Smoking status: Never smoker Tobacco type: cigars and smokeless tobacco Second hand tobacco smoke exposure: No Alcohol intake: never Drinks per week: 5 Alcohol use details: socially Substance use: never Substance use type: does not use Do You Feel Safe in your Home?: Yes Lack of Transportation: No Lack of Food: Never True Current Housing: I Have Housing Concerned About Future Housing: No Difficulty Paying Gas/Electric Bills: No Difficulty Paying for Meds: No Currently Unemployed: No Education: High School Diploma/GED Difficulty w/ Childcare or Family Care: No Living arrangements: with family Spiritual care concerns: No Meds Home Medications and Allergies Home Medications ?Medication ?Instructions ?Recorded ?Confirmed ?Type acetaminophen-caffeine 500 mg-65 1 tablet PO Q6H PRN headaches 07/16/19 08/21/24 History mg tablet (Excedrin Tension Headache) sildenafil (pulm.hypertension) 20 See Rx Instructions PO DAILY PRN 03/21/23 08/21/24 Rx mg tablet sexual activity #90 tabs tramadol 50 mg tablet 50 mg PO Q6H PRN pain #20 tabs 07/30/24 08/21/24 Rx rivaroxaban 20 mg tablet (Xarelto) 20 mg PO DAILY #7 tabs 08/20/24 08/21/24 Rx amoxicillin 875 mg-potassium 1 tablet PO Q12H 08/21/24 08/21/24 History clavulanate 125 mg tablet Allergies Allergy/AdvReac Type Severity Reaction Status Date / Time No Known Allergies Allergy Verified 08/21/24 17:43 Vital Signs Vital Signs - 24 hr 08/24/24 16:00 08/24/24 16:00 08/24/24 16:03 Temperature 36.6 C Pulse Rate 82 83 Respiratory Rate 19 Blood Pressure 133/81 Pulse Oximetry 96 Oxygen Delivery Room Air 08/24/24 18:00 08/24/24 19:22 08/24/24 20:00 Temperature 37.3 C Pulse Rate 76 77 74 Respiratory Rate 20 20 Blood Pressure 136/75 Pulse Oximetry 96 96 Oxygen Delivery Room Air 08/24/24 20:00 08/24/24 22:00 08/24/24 22:23 Temperature Pulse Rate 74 72 Respiratory Rate Blood Pressure Pulse Oximetry 96 Oxygen Delivery Room Air 08/25/24 00:00 08/25/24 00:00 08/25/24 00:00 Temperature 37.1 C Pulse Rate 73 78 78 Respiratory Rate 20 20 Blood Pressure 122/76 Pulse Oximetry 100 100 Oxygen Delivery Room Air 08/25/24 02:00 08/25/24 04:00 08/25/24 04:00 Temperature Pulse Rate 76 81 81 Respiratory Rate 20 Blood Pressure Pulse Oximetry 100 Oxygen Delivery Room Air 08/25/24 04:00 08/25/24 05:45 08/25/24 07:55 Temperature 37.3 C 37.0 C Pulse Rate 79 74 75 Respiratory Rate 18 16 Blood Pressure 125/74 138/74 Pulse Oximetry 98 97 Oxygen Delivery 08/25/24 08:00 08/25/24 08:00 08/25/24 10:00 Temperature Pulse Rate 85 79 Respiratory Rate Blood Pressure Pulse Oximetry Oxygen Delivery Room Air 08/25/24 11:40 08/25/24 12:00 08/25/24 12:00 Temperature 36.9 C Pulse Rate 75 80 Respiratory Rate 20 Blood Pressure 143/79 H Pulse Oximetry 97 Oxygen Delivery Room Air Exam Narrative: Patient is comfortable, NAD HEENT: No scleral icterus, EOMI LUNGS:CTAB HEART: RR S1S2 ABD: BS+, Soft and nontender Lower extremities: 2+ of left lower extremities SKIN: no jaundice Neuro: no deficits seen. Results Labs 08/25/24 04:01 08/25/24 04:01 Labs: Short CBC 08/25/24 Range/Units 04:01 WBC 8.6 (4.5-10.0) K/mm3 Hgb 11.9 L (14.0-18.0) g/dL Hct 35.7 L (42.0-52.0) % Plt Count 231 (150-375) k/mm3 [facility] 08/25/24 04:01 Sodium 131 L Potassium 3.1 L Chloride 100 Carbon Dioxide 22 BUN 16 Creatinine 0.92 Glucose 108 Calcium 8.0 L
--- NOTE | 2024-08-25 17:19 | P.PNIM_ITS ---
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 The patient was recently diagnosed with DVT on his left leg and was started on Xarelto, and as per the ED physician, he took only one dose of Xarelto. Unfortunately, the patient experienced shortness of breath, fever, and chills on Tuesday. patient is found to have DVT and PE, started on heparin, will switch patient to oral anticoagulation, patient was started on xalreto, today patient oxygen saturation is 96% at RA, he clinically appears comfortable, patient was complaining of abdominal pain and vomiting and zofran was not helping, gave Compazine and ordered KUB, which showed possible colitis radiologist recommended CT scan of abdomen to further evaluate, started patient on Levaquin and Flagyl, will monitor. CT scan showed significant air opacification of nearly the entirety of the colon without a clear source of obstruction identified and patient also complaints gas and has not had a good BM, will give simethicone and stool softener and monitor, today patient had loose BM, today again patient still complaint of pain in left lower leg most likely due to DVT as well as patient has history of moderate degenerative change of the patellofemoral compartment. left leg color is normal, soft, and pules are positive, not erythema or red streak Mild degenerative change of the medial and lateral compartments on recent MRI of left knee. today patient was seen crossing guard and recommended to transfer the patient for possible thromboectomy of left lower leg, I call [facility] transfer line and presented the case Dr Rebolledo vascular surgeon, who has accepted the patient for transfer waiting for the bed. will PT work with the patient gently. 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 The patient was recently diagnosed with DVT on his left leg and was started on Xarelto, and as per the ED physician, he took only one dose of Xarelto. Unfortunately, the patient experienced shortness of breath, fever, and chills on Tuesday. patient is found to have DVT and PE, started on heparin, will switch patient to oral anticoagulation, patient was started on xalreto, today patient oxygen saturation is 96% at RA, he clinically appears comfortable, patient was complaining of abdominal pain and vomiting and zofran was not helping, gave Compazine and ordered KUB, which showed possible colitis radiologist recommended CT scan of abdomen to further evaluate, started patient on Levaquin and Flagyl, will monitor. CT scan showed significant air opacification of nearly the entirety of the colon without a clear source of obstruction identified and patient also complaints gas and has not had a good BM, will give simethicone and stool softener and monitor, today patient had loose BM, today again patient still complaint of pain in left lower leg most likely due to DVT as well as patient has history of moderate degenerative change of the patellofemoral compartment. left leg color is normal, soft, and pules are positive, not erythema or red streak Mild degenerative change of the medial and lateral compartments on recent MRI of left knee. today patient was seen crossing guard and recommended to transfer the patient for possible thromboectomy of left lower leg, I call [facility] tranfer line and presented the case Dr Rebolledo vascular surgeon, who has accepted the patient for transfer waiting for the bed. will PT work with the patient gently. will monitor Review of Systems Review of Systems: All systems are reviewed and are negative unless stated otherwise in the HPI. Exam Narrative: Patient is comfortable, NAD HEENT: eyes are clear and none icteric LUNGS:CTA HEART: RR S1S2 ABD: BS+, Soft and nontender Lower extremities: swelling of left lower extremities, left leg color is normal, soft, and pules are positive, not erythema or red streak SKIN: nonjaundiced Neuro: grossly intact. Objective Data Vital Signs Vital Signs: Vital Signs - 24 hr 08/24/24 18:00 08/24/24 19:22 08/24/24 20:00 Temperature 37.3 C Pulse Rate 76 77 74 Respiratory Rate 20 20 Blood Pressure 136/75 Pulse Oximetry 96 96 Oxygen Delivery Room Air 08/24/24 20:00 08/24/24 22:00 08/24/24 22:23 Temperature Pulse Rate 74 72 Respiratory Rate Blood Pressure Pulse Oximetry 96 Oxygen Delivery Room Air 08/25/24 00:00 08/25/24 00:00 08/25/24 00:00 Temperature 37.1 C Pulse Rate 73 78 78 Respiratory Rate 20 20 Blood Pressure 122/76 Pulse Oximetry 100 100 Oxygen Delivery Room Air 08/25/24 02:00 08/25/24 04:00 08/25/24 04:00 Temperature Pulse Rate 76 81 81 Respiratory Rate 20 Blood Pressure Pulse Oximetry 100 Oxygen Delivery Room Air 08/25/24 04:00 08/25/24 05:45 08/25/24 07:55 Temperature 37.3 C 37.0 C Pulse Rate 79 74 75 Respiratory Rate 18 16 Blood Pressure 125/74 138/74 Pulse Oximetry 98 97 Oxygen Delivery 08/25/24 08:00 08/25/24 08:00 08/25/24 10:00 Temperature Pulse Rate 85 79 Respiratory Rate Blood Pressure Pulse Oximetry Oxygen Delivery Room Air 08/25/24 11:40 08/25/24 12:00 08/25/24 12:00 Temperature 36.9 C Pulse Rate 75 80 Respiratory Rate 20 Blood Pressure 143/79 H Pulse Oximetry 97 Oxygen Delivery Room Air 08/25/24 14:00 08/25/24 16:00 08/25/24 16:00 Temperature 36.9 C Pulse Rate 87 85 81 Respiratory Rate 24 H Blood Pressure 131/73 Pulse Oximetry 97 Oxygen Delivery Intake/Output Intake/Output: Intake & Output 08/22/24 08/23/24 08/24/24 08/25/24 23:59 23:59 23:59 23:59 Intake Total 1677.4 2516.7 3586.7 2720 Output Total 550 550 Balance 1127.4 1966.7 3586.7 2720 Meds/Results Medications: Active Medications Generic Name Dose Route Start Last Admin Trade Name Freq PRN Reason Stop Dose Admin Acetaminophen 650 mg 08/24/24 10:18 08/25/24 11:37 Acetaminophen 325 Mg Tablet PO 650 mg Q6H PRN Administration Mild Pain (1-3) or Headache Hydrocodone Bitart/Acetaminophen 1 tab 08/22/24 05:47 08/24/24 16:15 Hydrocodone/Acetaminophen (*Crx) 5-325 Mg Tablet PO 1 tab Q4H PRN Administration Pain Rated 4-6 Metronidazole 500 mg in 100 mls @ 100 mls/hr 08/22/24 17:25 08/25/24 16:14 Flagyl 500 Mg/Iso Soln 100 Ml IVPB 100 mls/hr Q6HR [facility] Administration Sodium Chloride 1,000 mls @ 100 mls/hr 08/23/24 09:25 08/25/24 16:15 Normal Saline Iv IV CONT 100 mls/hr .Q10H [facility] Administration Levofloxacin/Dextrose 750 mg in 150 mls @ 100 mls/hr 08/23/24 20:00 08/24/24 22:00 Levaquin 750 Mg/D5w 150 Ml IVPB Infused Q24H [facility] Infusion Lactobacillus Acidophilus 1 tablet 08/23/24 13:00 08/25/24 16:16 Acidophilus/Bulgaricus Chewable Tablet PO 1 tablet QID [facility] Administration Prochlorperazine Edisylate 10 mg 08/24/24 16:00 08/24/24 16:16 Prochlorperazine Edisylate 10 Mg/2 Ml Vial IV PUSH 10 mg Q6H PRN Administration Nausea And Vomiting Rivaroxaban 15 mg 08/23/24 20:00 08/25/24 08:24 Rivaroxaban 15 Mg Tablet PO 09/13/24 09:01 15 mg Q12HR [facility] Administration Rivaroxaban 20 mg 09/14/24 17:00 Rivaroxaban 20 Mg Tablet PO DAILY@1700 [facility] Senna 8.6 mg 08/23/24 21:00 08/24/24 20:29 Sennosides 8.6 Mg Tablet PO 8.6 mg HS [facility] Administration Simethicone 125 mg 08/23/24 09:45 08/25/24 16:16 Simethicone 125 Mg Chew Tab PO 125 mg QID [facility]EN Administration Radiology Results: ITS Impressions Chest X-Ray 08/21/24 19:01 IMPRESSION: No acute cardiopulmonary pathology. Prominent bronchovascular markings in the lower lobes bilaterally. Chest CTA 08/21/24 21:18 IMPRESSION: 1. Pulmonary embolism. 2. Sliding hiatus hernia. 3. No acute lung lesion seen. The treating physician was notified 8:25 PM on August 21, 2024. Abdomen X-Ray 08/22/24 16:41 Impression: 1: Absence of haustral markings left colon, suspicious for colitis. Consider correlation with contrast-enhanced CT abdomen/pelvis. Abdomen/Pelvis CT 08/22/24 18:37 IMPRESSION: Significant air opacification of nearly the entirety of the colon without a clear source of obstruction identified. Redemonstration of patient's known pulmonary embolus within the right descending and ascending pulmonary arteries. Venous Doppler Study 08/25/24 12:30 IMPRESSION: 1. No interval change in extensive occlusive appearing acute deep venous thrombosis sparing the profunda femoral vein and greater saphenous vein outflow. Labs Labs: Laboratory Results - last 24 hr 08/25/24 04:01 WBC 8.6 RBC 3.79 L Hgb 11.9 L Hct 35.7 L MCV 94.2 MCH 31.4 MCHC 33.3 RDW 12.2 Plt Count 231 MPV 9.6 Sodium 131 L Potassium 3.1 L Chloride 100 Carbon Dioxide 22 Anion Gap 9 BUN 16 Creatinine 0.92 Estim Creat Clear Calc 93 Estimated GFR > 60 Glucose 108 Calcium 8.0 L Magnesium 1.9
--- NOTE | 2024-08-25 17:25 | PM.TDS ---
Transfer Discharge Sum: Prov Provider Date of admission: 08/21/24 21:35 Primary care physician: Anayeli Cortez NP Admitting clinician: Juan Carlos Campbell MD Consults: 08/24/24 Consult to Physician Routine Comment: Consulting Provider: Osmar Sullivan Reason for consultation: MGUS, Blood clots Has provider been notified: Yes DS: Admitting Diagnosis Discharge Date 08/25/24 Admitting Diagnosis Pulmonary Embolism,DVT DS: Discharge Diagnosis Discharge Diagnosis (1) Palpitation: Code(s): R00.2 - Palpitations Status: Acute (2) History of DVT of lower extremity: Code(s): Z86.718 - Personal history of other venous thrombosis and embolism Status: Acute (3) Pulmonary emboli: Code(s): I26.99 - Other pulmonary embolism without acute cor pulmonale Status: Acute (4) PNA (pneumonia): Code(s): J18.9 - Pneumonia, unspecified organism Status: Acute Plan Pulmonary embolism CT shows Will start heparin drip Will monitor hemoglobin and platelet Recent diagnosis of left lower extremity DVT Remote history of Rt lower extremity DVT 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 The patient was recently diagnosed with DVT on his left leg and was started on Xarelto, and as per the ED physician, he took only one dose of Xarelto. Unfortunately, the patient experienced shortness of breath, fever, and chills on Tuesday. patient is found to have DVT and PE, started on heparin, will switch patient to oral anticoagulation, patient was started on xalreto, today patient oxygen saturation is 96% at RA, he clinically appears comfortable, patient was complaining of abdominal pain and vomiting and zofran was not helping, gave Compazine and ordered KUB, which showed possible colitis radiologist recommended CT scan of abdomen to further evaluate, started patient on Levaquin and Flagyl, will monitor. CT scan showed significant air opacification of nearly the entirety of the colon without a clear source of obstruction identified and patient also complaints gas and has not had a good BM, will give simethicone and stool softener and monitor, today patient had loose BM, today again patient still complaint of pain in left lower leg most likely due to DVT as well as patient has history of moderate degenerative change of the patellofemoral compartment. left leg color is normal, soft, and pules are positive, not erythema or red streak Mild degenerative change of the medial and lateral compartments on recent MRI of left knee. today patient was seen talent acquisition consultant and recommended to transfer the patient for possible thromboectomy of left lower leg, I call [facility] transfer line and presented the case Dr Rebolledo vascular surgeon, who has accepted the patient for transfer waiting for the bed. will PT work with the patient gently. will monitor DVT prophylaxis heparin drip Transfer Discharge Sum: Med Medications Active and Home Medications: Home Medications acetaminophen-caffeine 500 mg-65 mg tablet (Excedrin Tension Headache) 1 tablet PO Q6H PRN headaches 07/16/19 [History Confirmed 08/21/24] sildenafil (pulm.hypertension) 20 mg tablet See Rx Instructions PO DAILY PRN sexual activity #90 tabs 03/21/23 [Rx Confirmed 08/21/24] tramadol 50 mg tablet 50 mg PO Q6H PRN pain #20 tabs 07/30/24 [Rx Confirmed 08/21/24] rivaroxaban 20 mg tablet (Xarelto) 20 mg PO DAILY #7 tabs 08/20/24 [Rx Confirmed 08/21/24] amoxicillin 875 mg-potassium clavulanate 125 mg tablet 1 tablet PO Q12H 08/21/24 [History Confirmed 08/21/24] Active Medications Acetaminophen (Acetaminophen 325 Mg Tablet) 650 mg PO Q6H PRN PRN Reason: Mild Pain (1-3) or Headache Last Admin: 08/25/24 11:37 Dose: 650 mg Hydrocodone Bitart/Acetaminophen (Hydrocodone/Acetaminophen (*Crx) 5-325 Mg Tablet) 1 tab PO Q4H PRN PRN Reason: Pain Rated 4-6 Last Admin: 08/24/24 16:15 Dose: 1 tab Metronidazole (Flagyl 500 Mg/Iso Soln 100 Ml) 500 mg in 100 mls @ 100 mls/hr IVPB Q6HR [facility] Last Admin: 08/25/24 16:14 Dose: 100 mls/hr Sodium Chloride (Normal Saline Iv) 1,000 mls @ 100 mls/hr IV CONT .Q10H [facility] Last Admin: 08/25/24 16:15 Dose: 100 mls/hr Levofloxacin/Dextrose (Levaquin 750 Mg/D5w 150 Ml) 750 mg in 150 mls @ 100 mls/hr IVPB Q24H [facility] Last Infusion: 08/24/24 22:00 Dose: Infused Lactobacillus Acidophilus (Acidophilus/Bulgaricus Chewable Tablet) 1 tablet PO QID [facility] Last Admin: 08/25/24 16:16 Dose: 1 tablet Prochlorperazine Edisylate (Prochlorperazine Edisylate 10 Mg/2 Ml Vial) 10 mg IV PUSH Q6H PRN PRN Reason: Nausea And Vomiting Last Admin: 08/24/24 16:16 Dose: 10 mg Rivaroxaban (Rivaroxaban 15 Mg Tablet) 15 mg PO Q12HR [facility] Stop: 09/13/24 09:01 Last Admin: 08/25/24 08:24 Dose: 15 mg Rivaroxaban (Rivaroxaban 20 Mg Tablet) 20 mg PO DAILY@1700 [facility] Senna (Sennosides 8.6 Mg Tablet) 8.6 mg PO HS [facility] Last Admin: 08/24/24 20:29 Dose: 8.6 mg Simethicone (Simethicone 125 Mg Chew Tab) 125 mg PO QID [facility] Last Admin: 08/25/24 16:16 Dose: 125 mg Transfer Discharge Sum: Hosp Hospital Course Hospital course: Loyd Canales is a 63 year old male patient is found to have DVT and PE, started on heparin, will switch patient to oral anticoagulation, patient was started on xalreto, today patient oxygen saturation is 96% at RA, he clinically appears comfortable, patient was complaining of abdominal pain and vomiting and zofran was not helping, gave Compazine and ordered KUB, which showed possible colitis radiologist recommended CT scan of abdomen to further evaluate, started patient on Levaquin and Flagyl, will monitor. CT scan showed significant air opacification of nearly the entirety of the colon without a clear source of obstruction identified and patient also complaints gas and has not had a good BM, will give simethicone and stool softener and monitor, today patient had loose BM, today again patient still complaint of pain in left lower leg most likely due to DVT as well as patient has history of moderate degenerative change of the patellofemoral compartment. left leg color is normal, soft, and pules are positive, not erythema or red streak Mild degenerative change of the medial and lateral compartments on recent MRI of left knee. today patient was seen talent acquisition consultant and recommended to transfer the patient for possible thromboectomy of left lower leg, I call [facility] transfer line and presented the case Dr Rebolledo vascular surgeon, who has accepted the patient for transfer waiting for the bed. will PT work with the patient gently. will monitor Patient continue to have pain his left calf and US showed clots, called [facility] and spoke witn Dr. Rebolledo, vascualr surgeon, accepeted the patient for possible thrombectomy, patient is clinically stable, will discharge patient today. Time Spent with Patient Time attestation: Total time spent providing and/or coordinating transfer services: Exam Narrative: Patient is comfortable, NAD HEENT: eyes are clear and none icteric LUNGS:CTA HEART: RR S1S2 ABD: BS+, Soft and nontender Lower extremities: swelling of left lower extremities, left leg color is normal, soft, and pules are positive, not erythema or red streak SKIN: nonjaundiced Neuro: grossly intact. DS: Data Data Completed and Pending Labs on day of discharge: Labs from last 24 hours 08/25/24 04:01 WBC 8.6 RBC 3.79 L Hgb 11.9 L Hct 35.7 L MCV 94.2 MCH 31.4 MCHC 33.3 RDW 12.2 Plt Count 231 MPV 9.6 Sodium 131 L Potassium 3.1 L Chloride 100 Carbon Dioxide 22 Anion Gap 9 BUN 16 Creatinine 0.92 Estim Creat Clear Calc 93 Estimated GFR > 60 Glucose 108 Calcium 8.0 L Magnesium 1.9
== END 2024-08-25 18:40 | disposition short-term general hospital (02) | DRG 175 ==
LOC: ANHED 21:48 → ANHIMU 22:23
PROVIDERS: Internal Medicine; Pediatrics; Physician Assistant; Admitting Provider General Practice; Emergency Provider Emergency Medicine; PCP Nurse Practitioner Family; Visit Provider Family Medicine
DX: I26.99 Other pulmonary embolism without acute cor pulmonale (principal); J18.9 Pneumonia, unspecified organism; I82.402 Acute embolism and thrombosis of unspecified deep veins of left lower extremity; E78.2 Mixed hyperlipidemia; Z86.718 Personal history of other venous thrombosis and embolism; Z85.828 Personal history of other malignant neoplasm of skin; Z20.822 Contact with and (suspected) exposure to COVID-19; Z79.01 Long term (current) use of anticoagulants; Z87.891 Personal history of nicotine dependence
CPT/HCPCS: 36415; 36600; 71045; 71275; 74018; 74177; 80048; 80053; 80307; 81001; 82805; 83605; 83735; 83880; 84484; 85018; 85025; 85027; 85610; 85730; 87637; 87641; 93005; 93306; 93971; 96374; 96375; 99291; A9270; J0780; J1644; J1836; J1956; J2405; J7030; Q9967

== ENCOUNTER 2024-10-24 15:07 | Outpatient (CLI) | payer BC, SELFPAY ==
[2024-10-24 15:26] LABS: Basophils Absolute Auto 0.1 K/mm3 (0.0-0.1); Basophils Percent Auto 0.8 % (0.2-1.2); Eosinophils Absolute Auto 0.4 K/mm3 (0-0.3); Eosinophils Percent Auto 5.8 % (0-4.4); Hematocrit 42.5 % (42.0-52.0); Immature Granulocyte Absolute 0.03 K/mm3 (0.00-0.031); Immature Granulocyte Percent A 0.5 % (0-0.5); Lymphocytes Absolute Auto 2.18 K/mm3 (0.9-3.2); Mean Corpuscular HGB Conc 32.9 g/dl (32-36); Mean Corpuscular Hemoglobin 31.3 pg (26-34); Mean Corpuscular Volume 94.9 fl (80-100); Mean Platelet Volume 9.9 fl (7.4-10.4); Monocytes Absolute Auto 0.4 K/mm3 (0.1-0.6); Monocytes Percent Auto 7.3 % (2.6-8.5); Neutrophils Percent Auto 49.6 % (45.5-73.1); Platelet Count Result 234 k/mm3 (150-375); Red Blood Count 4.48 M/mm3 (4.6-6.20); Red Cell Distribution Width 13.2 % (11.5-14.5); White Blood Count 6.1 K/mm3 (4.5-10.0)
[2024-10-24 15:32] LABS: Blood Urea Nitrogen 22 mg/dL (8-26); Carbon Dioxide 21 mmol/L (22-30); Chloride 106 mmol/L (98-109); Estimated Glomerular Filt Rate 51; Glucose 101 mg/dL (70-105); Ionized Calcium (POC) 1.12 mmol/L (1.11-1.31); Potassium 3.9 mmol/L (3.5-4.9); Sodium 140 mmol/L (138-146)
[2024-10-24 16:58] LABS: Alanine Aminotransferase 15 U/L (6-50); Albumin Level 4.2 g/dL (3.5-5.1); Alkaline Phosphatase 70 U/L (38-126); Anion Gap 9 mmol/L (4-12); Aspartate Amino Transferase 34 U/L (17-59); Bilirubin,Total 0.4 mg/dL (0.2-1.3); Blood Urea Nitrogen 20 mg/dL (9-20); Calcium 8.9 mg/dL (8.4-10.2); Carbon Dioxide 20 mmol/L (22-30); Chloride 108 mmol/L (98-107); Estimated Glomerular Filt Rate 57; Glucose 100 mg/dL (65-110); Potassium 3.9 mmol/L (3.4-5.0); Sodium 137 mmol/L (137-145); Total Protein 8.3 g/dL (6.3-8.2)
--- OUTSIDE RECORDS SUMMARY | 2024-10-24 17:01 | XMS_ITS | CONTINUITY OF CARE DOCUMENT ---
Author Name jose garcia Address Unknown Organization [facility] Address [address] [place] [address] Phone [phone] Care Team Providers Care Veterinary Radiologist Name Role Phone Juno MORSE, Randolph Unavailable [phone] JOE SCHULTZ MD Unavailable INSURANCE PROVIDERS Payer name Policy type / Coverage type [place] red green party ID [facility] [id number]
--- OUTSIDE RECORDS SUMMARY | 2024-10-24 17:01 | XMS_ITS | Encounter Summary ---
Author Organization [facility] SERGIO Cal[facility] Address [address] [phone] Care Team Providers Care Wood Coater Name Role Phone Phan Taveras MD Primary Care Provider [phone] Reason for Referral * Radiology Services (Routine) - Closed Specialty Diagnoses / Procedures Referred By Contzoe t Referred To Contact Diagnoses Acute deep vein thrombosis (DVT) of proximal vein of left lower extremity (CMS/HCC) Procedures US VENOUS DOPPLER LEG LEFT Osmar Sullivan MD [address] [place] [address] Phone: tel: fax: [place] [phone] Referral ID Status Reason Start Date Expiration Date V isits Requested Visits Authorized [id number] Closed STL CTS 10/24/2024 11/24/2025 1 1 Reason for Visit * Reason Comments Follow Up Encounter Details Date Type Department Care Team (Late st Contact Info) Description 10/24/2024 3:45 PM CDT Office Visit [facility] Oncology and Hematology [facility] [address] [place] [address] [address] [place] [address] Osmar Sullivan MD [address] [place] [address] Plasma cell disorder (Primary Dx); Acute deep vein thrombosis (DVT) of proximal vein of left lower extremity (CMS/HCC) Social History Tobacco Use Types Packs/Day Years Used Date Smoking Tobacco: Some Days Cigars Smokeless Tobacco: Current Chew Tobacco Cessation:Ready to Q uit: Not Asked; Counseling Given: Not Answered Alcohol Use Standard Drinks/Week Comments Yes 0 (1 standard drink = 0.6 oz pur e alcohol) socially Sex and Gender Information Value Date Recorded Sex Assigned at Not on file Legal Sex Male 9:21 AM CDT Gender Identity Not on file Sexual Orientation Not on file documented as of this encounter Last Filed Vital Signs Vital Sign Reading Time Taken Comments Blood Pressure 127/84 10/24/2024 3:31 PM CDT Pulse 66 10/24/2024 3:31 PM CDT Temperature 36.9 C (98.4 F) 10/24/2024 3:31 PM CDT Respiratory Rate 15 10/24/2024 3:31 PM CDT Oxygen Saturation 97% 10/24/2024 3:31 PM CDT Inhaled Oxygen Concentration - - Weight 101.2 kg (223 lb 3.2 oz) 10/24/2024 3:31 PM CDT Height - - Body Mass Index 29.45 11/15/2023 2:02 PM CDT documented in this encounter Progress Notes * Osmar Sullivan MD - 10/24/2024 4:24 PM CDT HEMATOLOGY / ONCOLOGY PROGRESS NOTE Patient Identification: Name: Loyd Canales Age: 63 y.o. 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 Hypercoagulable state with diagnosis of pulmonary embolism and left lower extremity DVT on August 21, 2024. CURRENT TREATMENT Eliquis 5 mg twice a day started August 21, 2024 TREATMENT HISTORY SUBJECTIVE Patient came to the office for follow-up visit. Since the last visit he was diagnosed with provokedpulmonary embolism in the right mainstem pulmonary artery and left lower extremity extensive DVT onAugust 21, 2024. He is taking Eliquis. Denies any chest pain and shortness of breath. Denies any bone pain. Denies any leg pain or swelling. No other new complaints. Review of system Constitutional: Patient did not mention fevers, sweats, denies any tiredness and fatigue, weight and appetite stable HEENT: Patient did not mention sinus congestion, hearing or vision problems Respiratory: Patient did not mention cough, dyspnea, wheeze Cardiovascular: Patient did not mention chest pain, exertional chest pressure/discomfort, nausea, syncope, shortness of breath GI: Patient did not mention constipation, diarrhea, dsyphagia, reflux symptoms, vomiting, melena : Patient did not mention dysuria, frequency, incontinence, urgency Integumentary system: no lymphadenopathy, sweats, flushing Musculoskeletal: Patient not mention: myalgia, arthralgia Neurological: Patient did not mention blurry or disturbed vision, numbness/weakness, dizziness Skin: No lumps, bumps or rashes. 12 point review of system was reviewed Objective: Vital signs in last 24 hours: As per nursing note Exam: General appearance: alert, cooperative, no distress, appears stated age Head: normocephalic, without obvious abnormality, atraumatic Eyes: conjunctivae/corneas clear, EOM's intact Ears: normal external ear canals AU Nose: Nares normal. Septum midline. Mucosa normal. No drainage or sinus tenderness Throat: Lips, mucosa, and tongue normal. Teeth and gums normal Neck: supple, symmetrical, trachea midline. Lungs: clear to auscultation bilaterally Heart: regular rate and rhythm, S1, S2 normal, no murmur, click, rub or gallop Abdomen: soft, non-tender. Bowel sounds normal. No masses, No organomegaly Extremities: extremities normal, atraumatic, no cyanosis or edema Skin: Skin color, texture, turgor normal. No rashes or lesions Lymph nodes: No lymphadenopathy Neuro: No obvious focal deficit Exam as above PATH LABS Labs from November 27 showed creatinine 1.4 GFR 51 calcium 8.9 IgG 2398 IgA 70 IgM less than 25 serum protein electrophoresis showed monoclonal spike of 1.8 g/dL WBC 4.4 hemoglobin 15.7 platelet 188,000 Ravinia light chain 74 lambda light chain 9.2 ratio 8.0 Labs from April 20 showed IgG 2741 Ravinia light chain 58.2 lambda 10.1 ratio 5.7 serum protein electrophoresis showed M spike of 1.9 g hemoglobin 16.1 creatinine 1.4 calcium 9.4 Labs from October 24 showed hemoglobin 14 creatinine 1.4 IgG 2506 Ravinia light chain 48 lambda 8.9 ratio 5.4 M spike of 1.5 g @IMAGEIMP@ Assessment: Plan: There are no active problems to display for this patient. 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 Bone scan done on November 22 showed no suspicious lesions. PET scan was done on December 12 that showed no evidence of myeloma. Patient is clinically asymptomatic. Labs showed improvement in the monoclonal spike now down to 1.5g. No indication to treat myeloma. Will continue to observe and repeat myeloma testing in 6 months. Provoked left lower extremity DVT and pulmonary embolism diagnosed August 21, 2024. Patient was dealing with injury in the left knee prior to the development of DVT and PE. Patient has a history of right lower extremity DVT after the right ankle fracture in 2013. He is on Eliquis and tolerating it well with improvement in the symptoms. I will order left lower extremity ultrasound and 4 weeks and phone visit in 5 weeks. After the resolution of DVT we will perform hypercoagulable workup. 10/24/2024 Osmar Sullivan MD documented in this encounter Plan of Treatment Upcoming Encounters Date Type Department Care Team (Late st Contact Info) Description 11/29/2024 4:30 PM CDT Telephone Check Up [facility] Oncology and Hematology [place] [address] [address] [place] [address] Osmar Sullivan MD [address] [place] [address] [place] [address] 04/25/2025 3:45 PM FAMILY SERVICE CASEWORKER Office Visit [facility] Oncology and Hematology [place] [address] [place] [phone] [place] [address] [place] [address] [place] [phone] Scheduled Orders Name Type Priority Associated Diagnoses Orde r Schedule CBC WITH DIFFERENTIAL Lab Stat Plasma cell disorder Expected: 04/25/2025, Expires: 10/24/2025 COMPREHENSIVE METABOLIC PANEL Lab Stat Plasma cell disorder Expected: 04/25/2025, Expires: 10/24/2025 IMMUNOGLOBULINS IGG IGA IGM Lab Routine Plasma cell disorder Expected: 04/25/2025, Expires: 10/24/2025 KAPPA/LAMBDA, FREE LIGHT CHAINS Lab Routine Plasma cell disorder Expected: 04/25/2025, Expires: 10/24/2025 PROTEIN ELECTROPHORESIS W/REFLEX,SERUM Lab Routine Plasma cell disorder Expected: 04/25/2025, Expires: 10/24/2025 US VENOUS DOPPLER LEG LEFT Imaging Routine Acute deep vein thrombosis (DVT) of proximal vein of left lower extremity (CMS/HCC) Expected: 11/23/2024, Expires: 10/24/2025 documented as of this encounter Visit Diagnoses Diagnosis Plasma cell disorder- Primary Other specified disease of white blood cells Acute deep vein thrombosis (DVT) of proximal vein of left lower extremity (CMS/HCC) documented in this encounter Care Teams Wood Coater Relationship Specialty Start Date End Date Phan Taveras MD [address] [place], [place] [address]y [address] [phone] PCP - General Family Practice 10/24/23 documented as of this encounter
--- OUTSIDE RECORDS SUMMARY | 2024-10-24 17:01 | XMS_ITS | Encounter Summary ---
Author Organization [facility] Address [address] [place] [address] Care Team Providers Care Ticket Scheduler Name Role Phone Phan Taveras MD Primary Care Provider [phone] Encounter Details Date Type Department Care Team (Late st Contact Info) Description 10/24/2024 External Device Data STL ABSTRACTION Provider, Abstract NO ADDRESS ON FILE Social History Tobacco Use Types Packs/Day Years [...] on file documented as of this encounter Plan of Treatment Upcoming Encounters Date Type Department Care Team (Late st Contact Info) Description 11/29/2024 4:30 PM CDT Telephone Check Up [facility] Oncology and Hematology [facility] [address] [place] [address] Osmar Sullivan MD [address] [place] [address] [address] [place] [address] 04/25/2025 3:45 PM PLANNER/SCHEDULER Office Visit [facility] Oncology [facility] Hematology [facility] [address] [place] [address] Osmar Sullivan MD [address] [place] [address] [address] [address] [place] [address] documented as of this encounter Visit Diagnoses Not on filedocumented in this encounter Care Teams Ticket Scheduler Relationship Specialty Start Date End Date Phan Taveras MD [address] [place] [address] [phone] PCP - General Family Practice 10/24/23 documented as of this encounter
--- OUTSIDE RECORDS SUMMARY | 2024-10-24 17:01 | XMS_ITS | Clinical Summary ---
Author Organization [facility] [place] meza Margaret Address [address] [place] [address] Care Team Providers Care Filler And Trimmer Name Role Phone Phan Taveras MD Primary Care Provider Allergies No known active allergies Medications sildenafiL (VIAGRA) 25 mg tablet Take 25 mg by mouth 1 time daily as needed for Erectile Dysfunction. Active Eliquis 5 mg tablet Take 1 Tablet by mouth 2 times daily. 10/08/2024 Active Active Problems No known active problems Encounters Date Type Department Care Team Description 10/24/2024 3:45 PM CDT Office Visit [facility] Oncology and Hematology [facility] [address] [place] [address] Osmar Sullivan MD Plasma cell disorder (Primary Dx); Acute deep vein thrombosis (DVT) of proximal vein of left lower extremity (CMS/HCC) 10/24/2024 External Device Data STL ABSTRACTION Provider, Abstract 09/07/2024 Abstract [facility] Oncology [facility] Hematology [facility] [address] [place] [address] Osmar Sullivan MD from Last 3 Months Family History Medical History Relation Name Comments [...] 3.2 oz) 10/24/2024 3:31 PM CDT Height 185.4 cm (6' 1) 11/15/2023 2:02 PM CDT Body Mass Index 29.45 11/15/2023 2:02 PM CDT Plan of Treatment Upcoming Encounters Date Type Department Care Team (Late st Contact Info) Description 11/29/2024 4:30 PM CDT Telephone Check Up [facility] Oncology and Hematology [facility] [address] [place] [phone] Osmar Sullivan MD [facility] [employer] [facility] [employer] [address] [place] [phone] 04/25/2025 3:45 PM HEALTH EDUCATION SPECIALIST Office Visit [facility] Oncology [facility] Hematology [facility] [address] [place] [address] Osmar Sullivan MD [facility] [employer] [address] [place] [phone] Health Maintenance Due Date Last Done Comments Pre-Diabetes and Diabetes Screening 1960 DTAP/TDAP/TD VACCINES (1 - Tdap) 1980 COLORECTAL SCREENING 2006 Colorectal Cancer Screening 2006 FIT-DNA Q 3 years 2006 FIT/FOBT Q 1 year 2006 Flex Sig/CT Colonography Q 5 years 2006 ZOSTER VACCINE (1 of 2) 11/06/2011 INFLUENZA VACCINE (#1) 2023 Preventative Visit- Commercial 05/09/2024 RSV VACCINE (60+ or ) (1 - 1-dose 75+ series) 2036 Procedures Procedure Name Priority Date/Time Associated Diagnosis Comments PROTEIN ELECTROPHORESIS W/REFLEX,SERUM Routine 10/19/2024 3:37 PM CDT Plasma cell disorder KAPPA/LAMBDA LIGHT CHAINS Routine 10/19/2024 3:37 PM CDT Plasma cell disorder IMMUNOGLOBULINS IGG IGA IGM Routine 10/19/2024 3:37 PM CDT Plasma cell disorder from Last 3 Months Results * (ABNORMAL) KAPPA/LAMBDA, FREE LIGHT CHAINS (10/19/2024 3:37 PM CDT) KAPPA FREE LIGHT CHAIN 48.6(H) 3.3 - 19.4 mg/L [facility] LAMBDA FREE LIGHT CHAIN 8.9 5.7 - 26.3 mg/L [facility] KAPPA/LAMBDA LIGHT CHAIN RATIO 5.46(H) 0.26 - 1.65 [facility] Comment: Free kappa/lambda ratio in serum of normal individuals is 0.26-1.65. Excess production of free kappa or lambda chains can alter this ratio. Monoclonal free light chains are found in serum of patients with multiple myeloma, Waldenstrom's macroglobulinemia, mu-heavy chain disease, primary amyloidosis, light chain deposition disease, monoclonal gammopathy of undetermined significance, and lymphoproliferative disorders. Measurement of free light chain concentration in serum is useful for diagnosis, prognosis, monitoring disease activity and following response to therapy of these disorders. Test Performed at: [facility] [address] [place] [address] Dameon Clement MD Blood 10/19/2024 3:37 PM CDT 10/19/2024 3:38 PM CDT Osmar Sullivan MD CHEMISTRY ORDERABLES Final Resu lt Performing Organization Address [facility] Co de Phone Number [facility] [phone] [facility] [address] [place] [address] * (ABNORMAL) IMMUNOGLOBULINS IGG IGA IGM (10/19/2024 3:37 PM CDT) IGA 92 70 - 320 mg/dL [facility] IGG 2506(H) 600 - 1540 mg/dL [facility] IGM 24(L) 50 - 300 mg/dL [facility] Comment: Verified by repeat analysis. Test Performed at: [facility] [address] [place] [address] Dameon Clement MD Blood 10/19/2024 3:37 PM CDT 10/19/2024 3:38 PM CDT Osmar Sullivan MD CHEMISTRY ORDERABLES Final Resu lt Performing Organization Address [facility] Co de Phone Number [facility] [phone] [facility] [address] [place] [address] * (ABNORMAL) PROTEIN ELECTROPHORESIS W/REFLEX,SERUM (10/19/2024 3:37 PM CDT) TOTAL PROTEIN 8.1 6.1 - 8.1 g/dL [facility] ALBUMIN SPE 4.4 3.8 - 4.8 g/dL [facility] ALPHA 1 GLOBULIN SPE 0.3 0.2 - 0.3 g/dL [facility] ALPHA 2 GLOBULIN SPE 0.7 0.5 - 0.9 g/dL [facility] Beta 1 Globulin 0.4 0.4 - 0.6 g/dL [facility] Beta 2 Globulin 0.3 0.2 - 0.5 g/dL [facility] GAMMA GLOBULIN 1.9(H) 0.8 - 1.7 g/dL [facility] ABNORMAL PROTEIN BAND SPE 1.5(H) NONE DETECTED g/dL [facility] SPE INTERP [facility] Comment: Restricted band (M-spike) migrating in the gamma region. Consider serum immunofixation to rule out a monoclonal protein if clinically indicated. Test Performed at: [facility] [id number] [address] Dameon Clemetn MD Blood 10/19/2024 3:37 PM CDT 10/19/2024 3:38 PM CDT Osmar Sullivan MD CHEMISTRY ORDERABLES Final Resu lt [facility] [phone] [facility] [address] [phone] from Last 3 Months Insurance [facility] BLUE ACCESS/TRUE BLUE PPO Care Teams Filler And Trimmer Relationship Specialty Start Date End Date Phan Taveras MD [address] [place] [address] [address] [place] [phone] PCP - General Family Practice 10/24/23
== END 2024-10-24 15:08 | disposition home or self-care (01) ==
LOC: ANHLAB 15:08
PROVIDERS: PCP Family Medicine; Visit Provider Internal Medicine Hematology & Oncology
DX: D72.9 Disorder of white blood cells, unspecified (principal)
CPT/HCPCS: 36415; 80047; 80053; 85025

== ENCOUNTER 2024-11-24 07:47 | Outpatient (CLI) | payer BC, SELFPAY ==
--- NOTE | ~2024-11-24 | US_ITS ---
EXAMINATION:US venous doppler LE LT INDICATION:Deep venous thrombosis present on prior ultrasound TECHNIQUE: Multiple grayscale, color flow and Doppler images of the left lower extremity deep venous systems were obtained and reviewed. COMPARISON: Comparison to multiple prior studies sequentially, with oldest reviewed study dated 08/20. FINDINGS: There is chronic deep venous thrombosis of the left femoral and popliteal veins. The remain gutierrez of the right lower extremity veins are patent with flow, compressibility and augmentation. There is normal flow in greater saphenous vein. IMPRESSION: 1: Chronic deep venous thrombosis of the left femoral and popliteal veins. Reviewed, dictated and finalized at location A.
--- OUTSIDE RECORDS SUMMARY | 2024-11-24 07:51 | XMS_ITS | Clinical Summary ---
Author Organization [facility] [place] meza Margaret Address [address] [place] [address] Care Team Providers Care Garnett Room Worker Name Role Phone Phan Taveras MD Primary Care Provider [phone] Allergies No known active allergies Medications sildenafiL (VIAGRA) 25 mg tablet Take 25 mg by mouth 1 time daily as needed for Erectile Dysfunction. Active Eliquis 5 mg tablet Take 1 Tablet by mouth 2 times daily. 10/08/2024 Active Active Problems No known active problems Encounters Date Type Department Care Team Description 11/21/2024 External Device Data STL ABSTRACTION Provider, Abstract 10/31/2024 Orders Only [facility] Oncology and Hematology [facility] [address] [place] [phone] Osmar Sullivan MD 10/24/2024 3:45 PM CDT Office Visit [facility] Oncology and Hematology [facility] [address] [place] [address] Osmar Sullivan MD Plasma cell disorder (Primary Dx); Acute deep vein thrombosis (DVT) of proximal vein of left lower extremity ([facility]/HCC) 10/24/2024 External Device Data STL ABSTRACTION Provider, Abstract 09/07/2024 Abstract [facility] Oncology [facility] Hematology [facility] [address] [place] [phone] Osmar Sullivan MD from Last 3 Months [...] 11/29/2024 4:30 PM CDT Telephone Check Up [facility] Oncology and Hematology [place] [address] [place] [address] Osmar Sullivan MD [address] [place] [phone] 04/25/2025 3:45 PM MAINTENANCE CRAFTSMAN Office Visit [facility] Oncology and Hematology [place] [address] [place] [address] Osmar Sullivan MD [address] [place] [phone] Health Maintenance Due Date Last Done Comments Pre-Diabetes and Diabetes Screening 1960 DTAP/TDAP/TD VACCINES (1 - Tdap) 1980 COLORECTAL SCREENING 2006 Colorectal Cancer Screening 2006 FIT-DNA Q 3 years 2006 FIT/FOBT Q 1 year 2006 Flex Sig/CT Colonography Q 5 years 2006 ZOSTER VACCINE (1 of 2) 11/06/2011 INFLUENZA VACCINE (#1) 2024 RSV VACCINE (60+ or ) (1 - 1-dose 75+ series) 2036 Procedures Procedure Name Priority Date/Time Associated Diagnosis Comments CBC WITH DIFFERENTIAL Routine 10/24/2024 12:30 PM CDT IMMUNOFIXATION Routine 10/19/2024 3:37 PM CDT PROTEIN ELECTROPHORESIS W/REFLEX,SERUM Routine 10/19/2024 3:37 PM CDT Plasma cell disorder KAPPA/LAMBDA LIGHT CHAINS Routine 10/19/2024 3:37 PM CDT Plasma cell disorder IMMUNOGLOBULINS IGG IGA IGM Routine 10/19/2024 3:37 PM CDT Plasma cell disorder from Last 3 Months Results * CBC WITH DIFFERENTIAL (10/24/2024 12:30 PM CDT) Blood Osmar Sullivan MD HEMATOLOGY ORDERABLES Final Res ult * IMMUNOFIXATION (10/19/2024 3:37 PM CDT) IMMUNOFIXATION INTERP [facility] Comment: IgG kappa monoclonal band present. Test Performed at: [facility] [address] [address] [address] Dameon Clement MD 10/19/2024 3:37 PM CDT 10/19/2024 3:38 PM CDT Osmar Sullivan MD CHEMISTRY ORDERABLES Final Resu lt Performing Organization Address [facility] de Phone Number [facility] [phone] [facility] [address] [facility] [place] [phone] * (ABNORMAL) KAPPA/LAMBDA, FREE LIGHT CHAINS (10/19/2024 3:37 PM CDT) KAPPA FREE LIGHT CHAIN 48.6(H) 3.3 - 19.4 mg/L [facility] LAMBDA FREE LIGHT CHAIN 8.9 5.7 - 26.3 mg/L [facility] KAPPA/LAMBDA LIGHT CHAIN RATIO 5.46(H) 0.26 - 1.65 [facility] Comment: Free kappa/lambda ratio in serum of [...] therapy of these disorders. Test Performed at: [facility] [address] [facility] [place] [address] Dameon Clement MD Blood 10/19/2024 3:37 PM CDT 10/19/2024 3:38 PM CDT Osmar Sullivan MD CHEMISTRY ORDERABLES Final Resu lt Performing Organization Address [facility] Co de Phone Number [facility] [phone] [facility] [address] [facility] [place] [address] * (ABNORMAL) IMMUNOGLOBULINS IGG IGA IGM (10/19/2024 3:37 PM CDT) IGA 92 70 - 320 mg/dL [facility] IGG 2506(H) 600 - 1540 mg/dL [facility] IGM 24(L) 50 - 300 mg/dL [facility] Comment: Verified by repeat analysis. Test Performed at: [facility] [address] [address] Dameon Clement MD Blood 10/19/2024 3:37 PM CDT 10/19/2024 3:38 PM CDT Osmar Sullivan MD CHEMISTRY ORDERABLES Final Resu lt [facility] [phone] [facility] [address] [place] [address] * (ABNORMAL) PROTEIN ELECTROPHORESIS W/REFLEX,SERUM (10/19/2024 3:37 PM CDT) TOTAL PROTEIN 8.1 6.1 - 8.1 g/dL [facility] ALBUMIN SPE 4.4 3.8 - 4.8 g/dL [facility] [place] ALPHA 1 GLOBULIN SPE 0.3 0.2 - 0.3 g/dL [facility] [place] ALPHA 2 GLOBULIN SPE 0.7 0.5 - 0.9 g/dL [facility] [place] Beta 1 Globulin 0.4 0.4 - 0.6 g/dL [facility] [place] Beta 2 Globulin 0.3 0.2 - 0.5 g/dL [facility] GAMMA GLOBULIN 1.9(H) 0.8 - 1.7 g/dL [facility] ABNORMAL PROTEIN BAND SPE 1.5(H) NONE DETECTED g/dL [facility] SPE INTERP [facility] Comment: Restricted band (M-spike) migrating in the gamma region. Consider serum immunofixation to rule out a monoclonal protein if clinically indicated. Test Performed at: [facility] [address] [address] [address] Dameon Clement MD Blood 10/19/2024 3:37 PM CDT 10/19/2024 3:38 PM CDT Osmar Sullivan MD CHEMISTRY ORDERABLES Final Resu lt [facility] [phone] [facility] [address] [address] [place] [phone] from Last 3 Months Insurance [employer] BLUE ACCESS/TRUE BLUE PPO Care Teams Garnett Room Worker Relationship Specialty Start Date End Date Phan Taveras MD [address] [place] [address] [address] [place] [phone] PCP - General Family Practice 10/24/23
== END 2024-11-24 07:48 | disposition home or self-care (01) ==
PROVIDERS: PCP Family Medicine; Visit Provider Internal Medicine Hematology & Oncology
DX: I82.532 Chronic embolism and thrombosis of left popliteal vein (principal)
CPT/HCPCS: 93971

== ENCOUNTER 2025-02-25 09:35 | Outpatient (CLI) | payer BC, SELFPAY ==
--- NOTE | ~2025-02-25 | US_ITS ---
EXAMINATION: US venous doppler LE , 02/25/2025 9:49 CDT HISTORY: ACUTE DVT OF PROXIMAL VEIN OF LLE Comparison: None Technique: Polanco-scale and color Doppler images were attempted of the lower saphenofemoral junction, common femoral vein,superficial femoral vein, proximal deep femoral vein, proximal deep femoral vein, popliteal vein and posterior tibial veins. Findings: Deep Venous System:There is chronic appearing thrombus noted in the left femoral and popliteal veins, no acute thrombus identified. Superficial Venous SystemNo superficial thrombophlebitis. Soft tissues: Soft tissues are unremarkable. Impression: Chronic DVT detailed above Reviewed, dictated and finalized at location P. Impression: Chronic DVT detailed above
--- OUTSIDE RECORDS SUMMARY | 2025-02-25 10:51 | XMS_ITS | Clinical Summary ---
Author Organization [facility] [place] meza Margaret Address [address] [place] [address] Care Team Providers Care Paper Cutting Machine Operator Name Role Phone Phan Taveras MD Primary Care Provider [phone] Allergies No known active allergies Medications sildenafiL (VIAGRA) 25 mg tablet Take 25 mg by mouth 1 time daily as needed for Erectile Dysfunction. Active Eliquis 5 mg tablet Take 1 Tablet by mouth 2 times daily. 10/08/2024 Active Active Problems No known active problems Encounters Date Type Department Care Team Description 02/19/2025 External Device Data ST[facility] ABSTRACTION Provider, Abstract 12/25/2024 External Device Data ST[facility] ABSTRACTION Provider, Abstract 11/29/2024 4:30 PM CDT Telephone Check Up [facility] Oncology and Hematology [facility] [address] [place] [phone] Osmar Sullivan MD Acute deep vein thrombosis (DVT) of proximal vein of left lower extremity (CMS/HCC) (Primary Dx) 11/26/2024 Orders Only [facility] Oncology and [facility] [address] [place] [id number] Osmar Sullivan MD from Last 3 Months [...] Care Team (Late st Contact Info) Description 03/04/2025 1:15 PM CDT Office Visit [facility] Oncology and Hematology [facility] [address] [place] [address] [facility] [address] [place] [address] Osmar Sullivan MD [address] [facility] [address] [place] [address] Health Maintenance Due Date Last [...] (1 - 1-dose 75+ series) 2036 Insurance [facility] BLUE ACCESS/TRUE BLUE PPO Care Teams Paper Cutting Machine Operator Relationship Specialty Start Date End Date Phan Taveras MD [address] [place] [address] [id number] PCP - General Family Practice 10/24/23
== END 2025-02-25 09:36 | disposition home or self-care (01) ==
PROVIDERS: PCP Family Medicine; Visit Provider Internal Medicine Hematology & Oncology
DX: I82.4Y2 Acute embolism and thrombosis of unspecified deep veins of left proximal lower extremity (principal)
CPT/HCPCS: 93971